=== PATIENT | male | born 2000 | race Caucasian/White ===

== ENCOUNTER 2024-12-18 01:09 | Emergency (ER) | payer BC, SELFPAY ==
[2024-12-18] VITALS (18 sets, daily range): BP systolic 106–134; BP diastolic 63–117; PULSE 100–120; RESP 15–32; TEMP 36.9–37.2; O2SAT 94–99; BMI 27.3
--- NOTE | 2024-12-18 01:24 | EKG12_ITS ---
Test Reason : CHEST PAIN
--- NOTE | 2024-12-18 01:25 | CT_ITS ---
PROCEDURE: CT/CTA Chest W/WO Contrast
--- NOTE | 2024-12-18 01:27 | EX.ED.DYSGE1 ---
HPI History of Present Illness Chief Complaint: Chest Pain Informant: patient and spouse/S.O. Narrative Narrative: Patient is a 24-year-old male with past medical history of anxiety. He recently started Prozac. He states in the last 2 days he has had mid chest discomfort without trauma or excessive activity. He states that the pain has persistently worsened since its onset and now he has shortness of breath and difficulty breathing because it hurts to breathe. He denies any recent surgery travel or history of DVT/PE. He denies any family history of cardiac disease at a young age. Of note he does state that roughly 6 months ago he had a similar event that lasted a few days and then resolved. He states he was not evaluated at that time. However with the persistent and now worsening symptoms he presents for evaluation [facility] Medical History Anxiety Home Medications ?Medication ?Instructions ?Recorded ?Last Taken ?Type colchicine 0.6 mg tablet 0.6 mg PO BID 14 days #28 tabs 12/18/24 Unknown Rx fluoxetine 40 mg capsule 40 mg PO DAILY 12/18/24 Unknown History ibuprofen 600 mg tablet 600 mg PO 4X/DAY 14 days #56 tabs 12/18/24 Unknown Rx oxycodone-acetaminophen 5 mg-325 1 tab PO Q6H PRN pain 5 days #20 12/18/24 Unknown Rx mg tablet (Percocet) tabs pantoprazole 40 mg tablet,delayed 40 mg PO DAILY 30 days #30 tabs 12/18/24 Unknown Rx release (Protonix) Allergy/AdvReac Type Severity Reaction Status Date / Time No Known Allergies Allergy Verified 12/18/24 01:09 Social History Smoking Status: Never smoker ROS [facility] ED Constitutional Constitutional ED: Denies chills or fever(s) ENT ENT ED: Denies sore throat Cardiovascular Cardiovascular: Reports chest pain and racing heartbeat Respiratory/Chest Respiratory/Chest: Reports dyspnea; Denies cough Gastrointestinal Gastrointestinal: Denies abdominal pain, diarrhea, nausea or vomiting Musculoskeletal Musculoskeletal: Denies back pain or myalgias Integumentary Denies rash Neurologic Neurologic: Denies headache(s) Psychiatric Psychiatric: Reports anxiety Hematologic/Lymphatic Hematologic/Lymphatic: Denies easy bleeding or easy bruising EXAM Physical Exam Const Vital Signs: 12/18/24 01:09 12/18/24 01:09 12/18/24 01:13 Temperature 99 F Temperature Source Oral Pulse Rate 119 H 120 H Respiratory Rate 20 H 28 H Respiratory Effort Short of Breath Blood Pressure 134/80 H Blood Pressure Mean 98 Pulse Ox 98 98 Oxygen Delivery Method 12/18/24 01:15 12/18/24 01:30 12/18/24 01:30 Temperature Temperature Source Pulse Rate 119 H 106 H Respiratory Rate 23 H 26 H Respiratory Effort Blood Pressure 109/79 120/94 H 120/94 H Blood Pressure Mean 90 103 103 Pulse Ox 99 97 Oxygen Delivery Method 12/18/24 01:45 12/18/24 01:46 12/18/24 02:01 Temperature Temperature Source Pulse Rate 112 H 111 H 114 H Respiratory Rate 15 17 Respiratory Effort Blood Pressure 128/117 H Blood Pressure Mean 122 Pulse Ox 94 Oxygen Delivery Method 12/18/24 02:09 12/18/24 02:15 12/18/24 02:30 Temperature Temperature Source Pulse Rate 106 H 103 H 100 Respiratory Rate 20 H 26 H 28 H Respiratory Effort Blood Pressure Blood Pressure Mean Pulse Ox 99 99 98 Oxygen Delivery Method Room Air 12/18/24 02:45 12/18/24 03:00 12/18/24 03:08 Temperature Temperature Source Pulse Rate 103 H 102 H 105 H Respiratory Rate 32 H 25 H 30 H Respiratory Effort Blood Pressure 111/87 H Blood Pressure Mean 94 Pulse Ox 97 98 96 Oxygen Delivery Method 12/18/24 03:15 12/18/24 03:30 12/18/24 03:45 Temperature Temperature Source Pulse Rate 109 H 106 H Respiratory Rate 20 H 18 Respiratory Effort Blood Pressure 125/80 H 110/68 106/74 Blood Pressure Mean 92 81 84 Pulse Ox 97 97 Oxygen Delivery Method 12/18/24 04:00 12/18/24 04:39 Temperature 98.4 F Temperature Source Pulse Rate 103 H 106 H Respiratory Rate 22 H 20 H Respiratory Effort Blood Pressure 112/67 109/63 Blood Pressure Mean 81 78 Pulse Ox 97 98 Oxygen Delivery Method Positive well nourished and well developed General Appearance ED: well developed; Negative for pallor HEENT HEENT Narrative: Normocephalic atraumatic Eyes PERRL and EOMs intact bilaterally General Eye ED: Negative for scleral icterus Neck supple and no JVD Chest Wall palpation of chest normal Chest Narrative: No bony deformity or crepitance No reproducible pain with palpation of the chest wall Resp normal respiratory effort Resp Narrative: Patient is tachypneic and breath sounds are diminished throughout but overall clear to auscultation Cardio regular rhythm Rate: tachycardic and other Other Details: Tachycardic rate with regular rhythm Radial and carotid pulses are equal and symmetric No murmurs rubs or gallops GI normal to inspection, nondistended, normoactive bowel sounds, non-tender, non-distended and no masses Auscultation: normoactive bowel sounds Palpation: soft Extremity normal to inspection Extremity Narrative: No asymmetric edema no pitting edema negative Homans' sign bilaterally Neuro oriented x3, CN's II-XII intact bilaterally and no sensory deficits noted Sensorium / Orientation: alert Motor Exam: strength 5/5 throughout Psych Mood & Affect: anxious Skin no rashes or lesions noted and no wounds General Skin Exam: Negative for jaundice or pallor MDM MDM MDM Narrative Medical decision making narrative: Patient arrived to the ER tachycardic and was mildly tachypneic but overall satting well on room air and afebrile. He reported roughly 2 days of increasing midsternal chest pain. He is low risk for acute coronary syndrome but with concern for ACS versus cardiac dysrhythmia an EKG was obtained. EKG showed no findings of acute ischemia or cardiac dysrhythmia but did note diffuse ST segment elevation and AL depression consistent with pericarditis. In order to assess for intra pulmonary embolus versus pneumonia versus pneumothorax versus pericardial effusion a CTA of the chest was obtained. This revealed no acute findings. The patient white blood cell count is elevated as well as a CRP consistent for inflammatory marker elevation and inflammation of pericarditis. The initial and delta troponin were normal going against ACS. At this time the patient is not hypoxic we have ruled out dissection or ACS as a cause of his symptoms and he does not have secondary pericardial effusion associated with the pericarditis. Therefore I do not feel there is need for admission. As I feel the white count and CRP are related to inflammation and not infection there is no need for antibiotics. The patient will be kept on 600 mg ibuprofen 4 times a day as well as colchicine to help resolve the inflammation and control his chest discomfort. He can follow-up with cardiology as an outpatient to discuss potential causes for his pericarditis but at this time as he does not have associated pericardial effusion or findings of cardiac ischemia and is not requiring supplemental oxygen do not feel there is need for admission and he is otherwise safe for discharge. History & Record Review Discussion w/independent historian: Patient and Significant other Lab Data Attestation: I reviewed the patient's lab results. Labs: Laboratory Results - last 24 hr 12/18/24 12/18/24 01:15 03:14 WBC 19.6 H RBC 5.11 Hgb 14.7 Hct 44.0 MCV 86.1 MCH 28.8 MCHC 33.4 RDW Std Deviation 41.4 RDW Coeff of Tita 13.3 Plt Count 301 MPV 9.6 Immature Gran % (Auto) 0.700 Neut % (Auto) 79.6 H Lymph % (Auto) 9.1 L Barry % (Auto) 10.2 H Eos % (Auto) 0.1 Baso % (Auto) 0.3 Absolute Neuts (auto) 15.7 H Absolute Lymphs (auto) 1.78 Nucleated RBC % 0 Differential Comment SCANNED ESR 9 PT 15.4 H INR 1.2 APTT 33.5 Sodium 137 Potassium 4.3 Chloride 102 Carbon Dioxide 23.2 Anion Gap 12 BUN 17 Creatinine 0.81 Estim Creat Clear Calc 129.21 Est GFR (MDRD) Non-Af 125 BUN/Creatinine Ratio 20.8 H Glucose 114 H Calcium 9.3 Troponin T High Sens < 6 Troponin T Hi Sens 2 Hr 6 C-React Prot Ext Range 141.00 H Radiography Diagnostic Testing: Clinical Impression(s) from Imaging Studies Chest CTA 12/18/24 01:25 IMPRESSION: Mild bilateral basilar atelectatic pulmonary changes. No CT evidence of pulmonary embolus or aortic dissection. Reading [facility] Discharge Plan Triage Chief Complaint: Chest Pain ED Provider: Tray Cyr Dx/Rx/DC Orders Clinical Impression: Acute pericarditis, Anxiety Instructions: ED Pericarditis Prescriptions: New ibuprofen 600 mg tablet 600 mg PO 4X/DAY 14 Days Qty: 56 1RF colchicine 0.6 mg tablet 0.6 mg PO BID 14 Days Qty: 28 0RF oxycodone-acetaminophen [Percocet] 5-325 mg tablet 1 tab PO Q6H PRN (Reason: pain) 5 Days Qty: 20 0RF pantoprazole [Protonix] 40 mg tablet,delayed release (DR/EC) 40 mg PO DAILY 30 Days Qty: 30 0RF No Action fluoxetine 40 mg capsule 40 mg PO DAILY Primary Care Provider: Art Breaux Referrals: Patrick Baez MD [Med Staff - Active Staff, Cardiology] Referral Note: Acute pericarditis NOT,DEFINED [Non-Staff, None] Activity Restrictions/Additional Instructions: Please take the prescribed medications as directed to help resolve the inflammation around your heart and also reduce pain. Follow-up with cardiology to discuss further testing or treatment options if needed. It will typically take 2 to 3 days before you notice symptom improvement. Return to the ER should you have any further concerns Print Language: Pashto Disposition Disposition: Home, Self Care Discharge Date/Time: 12/18/24 04:40
[2024-12-18 01:43] LABS: Hematocrit 44.0 % (40-54); Hemoglobin 14.7 g/dL (13.0-16.5); Immature Granulocytes Count 0.130 X10^3/uL (0.0-0.0); Mean Corp Hgb Conc 33.4 g/dL (32-36); Mean Corpuscular Volume 86.1 fL (80-94); Mean Platelet Vol. 9.6 fl (6.2-12.0); NRBC Flagged by Analyzer 0 % (0-5); POSITIVE DIFFERENTIAL YES; Platelet Count 301 K/mm3 (150-450); RBC Distribution Width CV 13.3 % (11.6-14.6); RBC Distribution Width SD 41.4 fl (35.1-43.9); Red Blood Count 5.11 M/mm3 (4.6-6.2); White Blood Count 19.6 K/mm3 (4.4-11.0)
[2024-12-18 01:48] LABS: Prothrombin Time (Protime)PT. 15.4 SECONDS (11.7-14.9)
[2024-12-18 01:49] LABS: Differential Indicated SCAN CRITERIA MET; Partial Thromboplast Time 33.5 Seconds (24.1-36.2)
[2024-12-18 02:02] LABS: Troponin T High Sensitivity < 6 ng/L (<=22)
[2024-12-18 02:03] LABS: Anion Gap 12 (5-15); BUN 17 mg/dL (4-19); BUN/Creat Ratio 20.8 RATIO (10-20); Calcium,Total 9.3 mg/dL (7.6-11.0); Carbon Dioxide 23.2 mmol/L (21.0-32.0); Chloride 102 mmol/L (98-108); Estimated Creatinine Clearance 129.21 ml/min (50-250); Glucose 114 mg/dL (70-99); Potassium 4.3 mmol/L (3.3-5.1)
[2024-12-18] MEDS: 0.9% Normal Saline (1000mL) 1,000 ML 999 ML IV (02:06)
[2024-12-18] MEDS: Ketorolac 30 MG/ML Syringe IV (02:06)
[2024-12-18 02:15] LABS: Differential Comment SCANNED
[2024-12-18 03:36] LABS: CRP 141.00 mg/L (0.0-3.0)
[2024-12-18 04:17] LABS: Troponin T High Sens 2 HR 6 ng/L (<=22)
== END 2024-12-18 04:40 | disposition home or self-care (01) ==
PROVIDERS: Emergency Provider Emergency Medicine; PCP Family Medicine; Visit Provider Emergency Medicine
DX: I30.9 Acute pericarditis, unspecified (principal); F41.9 Anxiety disorder, unspecified; Z79.899 Other long term (current) drug therapy
CPT/HCPCS: 71275; 80048; 84484; 85025; 85610; 85652; 85730; 86140; 93005; 96361; 96374; 96375; 96376; 99282; Q9967; A4216; J2405

== ENCOUNTER 2025-01-01 20:38 | Emergency (ER) | payer BC, SELFPAY ==
[2025-01-01 20:38] VITALS: BP 112/69; PULSE 115; RESP 22; TEMP 37.6; O2SAT 96; BMI 29.0
[2025-01-01 20:41] VITALS: BP 117/73; PULSE 105; RESP 20; TEMP 37.4; O2SAT 97
--- NOTE | 2025-01-01 20:42 | ED.RN ---
IVON CHANGED TO A 2 DUE TO C/O CHEST PAIN AND DX OF PERICARDITIS
--- NOTE | 2025-01-01 20:44 | EDS_ITS ---
HPI <Dr. Adrián Espinoza DO - Last Filed: 01/02/25 01:03> History of Present Illness Chief Complaint: Fever Informant: patient Onset/Context/Timing Onset: Weeks (2) Context: Sudden Onset Timing: Intermittent Quality: Sharp Location: Bilateral shoulders, left worse than right, upper back Worsened by: Laying down Relieved by: Nothing Narrative Narrative: Patient presents with fever and chest pain that has been getting worse over the past 2 weeks. Patient states it comes and goes. Patient states his pain is sharp. Patient states it is over both shoulders and his upper back. Patient states it is worse on the left. Patient states it is worse when he lays down. Patient states nothing seems to help with it. Patient admits to some shortness of breath and palpitations. Patient states he feels like his heart is racing at times. Patient admits to some nausea but denies any vomiting. Patient admits to some pain in his neck and back. Patient also admits to a mild headache. Patient states his temperature at home was up to 101. PFSH <Dr. Adrián Espinoza, - Last Filed: 01/02/25 01:03> [facility] Medical History (Updated 01/02/25 @ 07:[address] Giuseppe Tirado MD) Acid reflux Constipation Distal muscular dystrophy Anxiety Home Medications Medication Instructions Recorded Last Taken Type colchicine 0.6 mg tablet 0.6 mg PO BID 14 days #28 ta bs 12/18/24 Unknown Rx fluoxetine 40 mg capsule 40 mg PO DAILY 12/18/24 Unkn own History ibuprofen 600 mg tablet 600 mg PO 4X/DAY 14 days #56 tabs 12/18/24 Unknown Rx oxycodone-acetaminophen 5 mg-325 1 tab PO Q6H PRN pain 5 days #20 12/18/24 Unknown Rx mg tablet (Percocet) tabs pantoprazole 40 mg tablet,delayed 40 mg PO DAILY 30 da ys #30 tabs 12/18/24 Unknown Rx release (Protonix) Allergy/AdvReac Type Severity Reaction Status Date / Time No Known Allergies Allergy Verified 01/01/25 20:46 Surgical History (Updated 01/01/25 @ 22:[address] Adrián Espinoza DO) History of nasal surgery Social History Smoking Status: Never smoker ROS <Dr. Adrián Espinoza, DO - Last Filed: 01/02/25 01:03> ROS ED Constitutional Constitutional ED: Reports chills and fever(s) Eyes Eyes: Denies blurry vision or change in vision ENT ENT ED: Reports rhinorrhea; Denies sore throat Cardiovascular Cardiovascular: Reports chest pain, palpitations and racing heartbeat Respiratory/Chest Respiratory/Chest: Reports dyspnea; Denies cough Gastrointestinal Gastrointestinal: Reports nausea; Denies vomiting Genitourinary Genitourinary ED: Denies dysuria or hematuria Musculoskeletal Musculoskeletal: Reports back pain, myalgias and neck pain Integumentary Denies abscess or rash Neurologic Neurologic: Reports headache(s); Denies weakness Allergic/Immunologic Allergic/Immunologic ED: Denies mouth swelling or urticaria EXAM <Dr. Adrián Espinoza, DO - Last Filed: 01/02/25 01:03> Physical Exam Const Vital Signs: 01/01/25 20:38 01/01/25 20:41 01/01/25 21:25 Temperature 99.7 F H 99.3 F H Temperature Source Oral Oral Pulse Rate 115 H 105 H Respiratory Rate 22 H 20 H Respiratory Effort Normal Respiratory Pattern Normal Blood Pressure 112/69 117/73 Blood Pressure Mean 83 87 Pulse Ox 96 97 Oxygen Delivery Method Room Air Room Air 01/01/25 21:41 01/01/25 22:00 01/01/25 23:00 Temperature 98.5 F 98.5 F 98.3 F Temperature Source Oral Oral Oral Pulse Rate 79 82 89 Respiratory Rate 16 16 16 Respiratory Effort Respiratory Pattern Blood Pressure 102/64 104/63 110/68 Blood Pressure Mean 76 76 82 Pulse Ox 95 95 95 Oxygen Delivery Method Room Air Room Air Room Air 01/02/25 00:00 01/02/25 01:00 01/02/25 01:13 Temperature 98.4 F Temperature Source Oral Pulse Rate 105 H 77 84 Respiratory Rate 16 24 H 32 H Respiratory Effort Respiratory Pattern Blood Pressure 104/74 101/72 Blood Pressure Mean 84 81 Pulse Ox 92 92 91 Oxygen Delivery Method Room Air Room Air 01/02/25 01:15 01/02/25 01:30 01/02/25 01:44 Temperature 98.5 F Temperature Source Oral Pulse Rate 87 84 84 Respiratory Rate 30 H 32 H 28 H Respiratory Effort Respiratory Pattern Blood Pressure 107/73 108/71 108/71 Blood Pressure Mean 82 81 83 Pulse Ox 90 89 92 Oxygen Delivery Method Room Air 01/02/25 01:45 01/02/25 02:00 01/02/25 02:15 Temperature Temperature Source Pulse Rate 82 87 80 Respiratory Rate 28 H 25 H 24 H Respiratory Effort Respiratory Pattern Blood Pressure 107/72 112/78 110/77 Blood Pressure Mean 84 89 87 Pulse Ox 91 87 93 Oxygen Delivery Method 01/02/25 02:30 01/02/25 02:45 01/02/25 03:00 Temperature 98.4 F Temperature Source Oral Pulse Rate 85 89 93 Respiratory Rate 25 H 24 H 24 H Respiratory Effort Respiratory Pattern Blood Pressure 106/71 108/75 108/76 Blood Pressure Mean 82 85 86 Pulse Ox 93 93 93 Oxygen Delivery Method Room Air 01/02/25 03:00 01/02/25 03:15 01/02/25 03:30 Temperature Temperature Source Pulse Rate 83 84 Respiratory Rate 21 H 25 H Respiratory Effort Respiratory Pattern Blood Pressure 108/76 112/75 108/75 Blood Pressure Mean 88 85 85 Pulse Ox 94 93 Oxygen Delivery Method 01/02/25 03:45 01/02/25 04:00 01/02/25 04:00 Temperature Temperature Source Pulse Rate 82 89 82 Respiratory Rate 27 H 23 H 25 H Respiratory Effort Respiratory Pattern Blood Pressure 114/80 117/79 113/79 Blood Pressure Mean 90 91 90 Pulse Ox 94 91 93 Oxygen Delivery Method Room Air 01/02/25 04:15 01/02/25 04:30 01/02/25 04:47 Temperature Temperature Source Pulse Rate 85 84 89 Respiratory Rate 25 H 23 H 34 H Respiratory Effort Respiratory Pattern Blood Pressure 117/79 114/82 H Blood Pressure Mean 90 93 Pulse Ox 93 91 95 Oxygen Delivery Method 01/02/25 05:00 01/02/25 05:00 01/02/25 05:15 Temperature Temperature Source Pulse Rate 93 89 94 Respiratory Rate 30 H 26 H 27 H Respiratory Effort Respiratory Pattern Blood Pressure 118/73 Blood Pressure Mean 88 Pulse Ox 92 93 93 Oxygen Delivery Method Room Air 01/02/25 05:17 01/02/25 05:30 01/02/25 05:45 Temperature Temperature Source Pulse Rate 104 H 101 H 97 Respiratory Rate 28 H 24 H 33 H Respiratory Effort Respiratory Pattern Blood Pressure 118/73 Blood Pressure Mean 86 Pulse Ox 94 94 93 Oxygen Delivery Method 01/02/25 06:00 01/02/25 06:00 01/02/25 06:15 Temperature Temperature Source Pulse Rate 97 91 101 H Respiratory Rate 14 30 H 20 H Respiratory Effort Respiratory Pattern Blood Pressure 112/79 112/79 Blood Pressure Mean 90 89 Pulse Ox 97 97 92 Oxygen Delivery Method Room Air 01/02/25 06:30 01/02/25 06:45 01/02/25 07:00 Temperature Temperature Source Pulse Rate 93 38 L Respiratory Rate 38 H 16 Respiratory Effort Respiratory Pattern Blood Pressure 108/76 Blood Pressure Mean 86 Pulse Ox 97 92 98 Oxygen Delivery Method Room Air 01/02/25 07:00 01/02/25 07:15 01/02/25 07:30 Temperature Temperature Source Pulse Rate 103 H 101 H 99 Respiratory Rate 25 H 31 H 35 H Respiratory Effort Respiratory Pattern Blood Pressure 108/74 Blood Pressure Mean 85 Pulse Ox 96 97 98 Oxygen Delivery Method 01/02/25 07:45 01/02/25 08:04 Temperature Temperature Source Pulse Rate 97 100 Respiratory Rate 38 H 32 H Respiratory Effort Respiratory Pattern Blood Pressure 118/83 H Blood Pressure Mean 94 Pulse Ox 99 98 Oxygen Delivery Method Nasal Cannula Positive well nourished and well developed General Appearance ED: well developed and NAD HEENT Reports moist mucous membranes Neck supple and no JVD Chest Wall inspection of chest normal and palpation of chest normal Resp normal respiratory effort and clear to auscultation bilaterally Cardio regular rate and regular rhythm GI non-tender and non-distended Palpation: soft Rectal Exam: normal sphincter tone, prostate normal and heme negative stool Neuro oriented x3, CN's II-XII intact bilaterally and no sensory deficits noted Sensorium / Orientation: alert Motor Exam: strength 5/5 throughout Psych mental status grossly normal <Dr. Giuseppe Tirado MD - Last Filed: 01/02/25 08:38> Physical Exam Const Vital Signs: 01/01/25 20:38 01/01/25 20:41 01/01/25 21:25 Temperature 99.7 F H 99.3 F H Temperature Source Oral Oral Pulse Rate 115 H 105 H Respiratory Rate 22 H 20 H Respiratory Effort Normal Respiratory Pattern Normal Blood Pressure 112/69 117/73 Blood Pressure Mean 83 87 Pulse Ox 96 97 Oxygen Delivery Method Room Air Room Air 01/01/25 21:41 01/01/25 22:00 01/01/25 23:00 Temperature 98.5 F 98.5 F 98.3 F Temperature Source Oral Oral Oral Pulse Rate 79 82 89 Respiratory Rate 16 16 16 Respiratory Effort Respiratory Pattern Blood Pressure 102/64 104/63 110/68 Blood Pressure Mean 76 76 82 Pulse Ox 95 95 95 Oxygen Delivery Method Room Air Room Air Room Air 01/02/25 00:00 01/02/25 01:00 01/02/25 01:13 Temperature 98.4 F Temperature Source Oral Pulse Rate 105 H 77 84 Respiratory Rate 16 24 H 32 H Respiratory Effort Respiratory Pattern Blood Pressure 104/74 101/72 Blood Pressure Mean 84 81 Pulse Ox 92 92 91 Oxygen Delivery Method Room Air Room Air 01/02/25 01:15 01/02/25 01:30 01/02/25 01:44 Temperature 98.5 F Temperature Source Oral Pulse Rate 87 84 84 Respiratory Rate 30 H 32 H 28 H Respiratory Effort Respiratory Pattern Blood Pressure 107/73 108/71 108/71 Blood Pressure Mean 82 81 83 Pulse Ox 90 89 92 Oxygen Delivery Method Room Air 01/02/25 01:45 01/02/25 02:00 01/02/25 02:15 Temperature Temperature Source Pulse Rate 82 87 80 Respiratory Rate 28 H 25 H 24 H Respiratory Effort Respiratory Pattern Blood Pressure 107/72 112/78 110/77 Blood Pressure Mean 84 89 87 Pulse Ox 91 87 93 Oxygen Delivery Method 01/02/25 02:30 01/02/25 02:45 01/02/25 03:00 Temperature 98.4 F Temperature Source Oral Pulse Rate 85 89 93 Respiratory Rate 25 H 24 H 24 H Respiratory Effort Respiratory Pattern Blood Pressure 106/71 108/75 108/76 Blood Pressure Mean 82 85 86 Pulse Ox 93 93 93 Oxygen Delivery Method Room Air 01/02/25 03:00 01/02/25 03:15 01/02/25 03:30 Temperature Temperature Source Pulse Rate 83 84 Respiratory Rate 21 H 25 H Respiratory Effort Respiratory Pattern Blood Pressure 108/76 112/75 108/75 Blood Pressure Mean 88 85 85 Pulse Ox 94 93 Oxygen Delivery Method 01/02/25 03:45 01/02/25 04:00 01/02/25 04:00 Temperature Temperature Source Pulse Rate 82 89 82 Respiratory Rate 27 H 23 H 25 H Respiratory Effort Respiratory Pattern Blood Pressure 114/80 117/79 113/79 Blood Pressure Mean 90 91 90 Pulse Ox 94 91 93 Oxygen Delivery Method Room Air 01/02/25 04:15 01/02/25 04:30 01/02/25 04:47 Temperature Temperature Source Pulse Rate 85 84 89 Respiratory Rate 25 H 23 H 34 H Respiratory Effort Respiratory Pattern Blood Pressure 117/79 114/82 H Blood Pressure Mean 90 93 Pulse Ox 93 91 95 Oxygen Delivery Method 01/02/25 05:00 01/02/25 05:00 01/02/25 05:15 Temperature Temperature Source Pulse Rate 93 89 94 Respiratory Rate 30 H 26 H 27 H Respiratory Effort Respiratory Pattern Blood Pressure 118/73 Blood Pressure Mean 88 Pulse Ox 92 93 93 Oxygen Delivery Method Room Air 01/02/25 05:17 01/02/25 05:30 01/02/25 05:45 Temperature Temperature Source Pulse Rate 104 H 101 H 97 Respiratory Rate 28 H 24 H 33 H Respiratory Effort Respiratory Pattern Blood Pressure 118/73 Blood Pressure Mean 86 Pulse Ox 94 94 93 Oxygen Delivery Method 01/02/25 06:00 01/02/25 06:00 01/02/25 06:15 Temperature Temperature Source Pulse Rate 97 91 101 H Respiratory Rate 14 30 H 20 H Respiratory Effort Respiratory Pattern Blood Pressure 112/79 112/79 Blood Pressure Mean 90 89 Pulse Ox 97 97 92 Oxygen Delivery Method Room Air 01/02/25 06:30 01/02/25 06:45 01/02/25 07:00 Temperature Temperature Source Pulse Rate 93 38 L Respiratory Rate 38 H 16 Respiratory Effort Respiratory Pattern Blood Pressure 108/76 Blood Pressure Mean 86 Pulse Ox 97 92 98 Oxygen Delivery Method Room Air 01/02/25 07:00 01/02/25 07:15 01/02/25 07:30 Temperature Temperature Source Pulse Rate 103 H 101 H 99 Respiratory Rate 25 H 31 H 35 H Respiratory Effort Respiratory Pattern Blood Pressure 108/74 Blood Pressure Mean 85 Pulse Ox 96 97 98 Oxygen Delivery Method 01/02/25 07:45 01/02/25 08:04 Temperature Temperature Source Pulse Rate 97 100 Respiratory Rate 38 H 32 H Respiratory Effort Respiratory Pattern Blood Pressure 118/83 H Blood Pressure Mean 94 Pulse Ox 99 98 Oxygen Delivery Method Nasal Cannula GERALDINE <Dr. Adrián Espinoza, DO - Last Filed: 01/02/25 01:03> GERALDINE MDM Narrative Medical decision making narrative: Differential diagnosis includes pneumonia, bronchitis, cardiac dysrhythmia, cardiac ischemia, gastroenteritis, viral illness, dehydration, electrolyte abnormality, and anxiety. Chest x-ray will be obtained to assess for pneumonia and bronchitis. EKG will be obtained to assess for cardiac dysrhythmia and cardiac ischemia. CBC will be obtained to assess for leukocytosis and anemia. Comprehensive metabolic profile will be obtained to assess for hepatic function, renal function, and electrolyte abnormality. Lipase will be obtained to assess for pancreatitis. D-dimer will be obtained to assess for pulmonary embolism. PT with INR and PTT will be obtained to assess for coagulopathy. Urinalysis will be obtained to assess for urinary tract infection and hematuria. History & Record Review Additional record(s) reviewed:: Prior ED visit and Prior labs Lab Data Attestation: I reviewed the patient's lab results. Lab results narrative: CBC was reviewed. White blood cell count was 16.8. This is decreased from previous results. Hemoglobin was 10.4 and hematocrit was 32.6. This was decreased from previous result 2 weeks ago which was 14.7. Platelets were normal. PT with INR and PTT were reviewed. Pro time was 16.2 and INR is 1.3. PTT was slightly elevated at 39.7. D-dimer was reviewed and was elevated at 3.03. Comprehensive metabolic profile was reviewed and was essentially within normal limits. AST was 41 and ALT was 55. Initial high-sensitivity troponin was reviewed and was less than 6. Lipase was reviewed and was normal at 14. Urinalysis was reviewed. There is no evidence of urinary tract infection or hematuria. 2-hour repeat high-sensitivity troponin was reviewed and was normal at 8. COVID-19 PCR was reviewed and was negative. Influenza PCR was reviewed and was negative for influenza A and influenza B. RSV PCR was reviewed and was negative. Stool for occult blood was reviewed and was negative. Labs: Laboratory Results - last 24 hr 01/01/25 01/01/25 01/01/25 20:55 21:01 21:20 WBC 16.8 H RBC 3.66 L Hgb 10.4 L Hct 32.6 L MCV 89.1 MCH 28.4 MCHC 31.9 L RDW Std Deviation 45.2 H RDW Coeff of Tita 13.7 Plt Count 420 MPV 9.9 Immature Gran % (Auto) 1.500 H Neut % (Auto) 80.4 H Lymph % (Auto) 7.9 L [place] % (Auto) 9.1 Eos % (Auto) 0.8 Baso % (Auto) 0.3 Absolute Neuts (auto) 13.5 H Absolute Lymphs (auto) 1.33 Nucleated RBC % 0 Differential Comment SCANNED Platelet Estimate ADEQUATE PT 16.2 H INR 1.3 APTT 39.7 H D-Dimer Quant (PE/DVT) 3.03 H* Sodium 138 Potassium 3.9 Chloride 104 Carbon Dioxide 24.0 Anion Gap 10 BUN 19 Creatinine 1.07 Estim Creat Clear Calc 108.44 Est GFR (MDRD) Non-Af 98 BUN/Creatinine Ratio 17.4 Glucose 126 H Lactic Acid 1.3 Calcium 9.0 Total Bilirubin 0.28 AST 41 H ALT 55 H Alkaline Phosphatase 116 Troponin T High Sens < 6 Troponin T Hi Sens 2 Hr Troponin T Hi Sens 4Hr NT pro BNP II Total Protein 7.1 Albumin 3.5 Globulin 3.6 Albumin/Globulin Ratio 1.0 Lipase 14 Urine Color Yellow Urine Clarity Clear Urine pH 6.0 Ur Specific [place] 1.020 Urine Protein 30 H Urine Glucose (UA) Normal Urine Ketones Negative Urine Occult Blood Negative Urine Nitrite Negative Urine Bilirubin Negative Urine Urobilinogen 4 H Ur Leukocyte Esterase Negative Urine RBC 0 SEEN Urine WBC 0-5 SEEN Ur Squamous Epith Cells 0-5 SEEN Amorphous Sediment 2+ Urine Bacteria 1+ Urine Mucus 2+ 01/01/25 01/02/25 23:11 01:00 WBC RBC Hgb Hct MCV MCH MCHC RDW Std Deviation RDW Coeff of [place]ita Plt Count MPV Immature Gran % (Auto) Neut % (Auto) Lymph % (Auto) [place] % (Auto) Eos % (Auto) Baso % (Auto) Absolute Neuts (auto) Absolute Lymphs (auto) Nucleated RBC % Differential Comment Platelet Estimate PT INR APTT D-Dimer Quant (PE/DVT) Sodium Potassium Chloride Carbon Dioxide Anion Gap BUN Creatinine Estim Creat Clear Calc Est GFR (MDRD) Non-Af BUN/Creatinine Ratio Glucose Lactic Acid Calcium Total Bilirubin AST ALT Alkaline Phosphatase Troponin T High Sens Troponin T Hi Sens 2 Hr 8 Troponin T Hi Sens 4Hr 7 NT pro BNP II 342 Total Protein Albumin Globulin Albumin/Globulin Ratio Lipase Urine Color Urine Clarity Urine pH Ur Specific [place] Urine Protein Urine Glucose (UA) Urine Ketones Urine Occult Blood Urine Nitrite Urine Bilirubin Urine Urobilinogen Ur Leukocyte Esterase Urine RBC Urine WBC Ur Squamous Epith Cells Amorphous Sediment Urine Bacteria Urine Mucus Radiography Chest X-Ray - ED: 2 View, Read by ED Physician, Read by Radiologist, Cardiomegaly and No Infiltrates Diagnostic Testing: Clinical Impression(s) from Imaging Studies Chest X-Ray 01/01/25 20:54 IMPRESSION: Stable mild cardiomegaly and mild pulmonary vascular congestion. [facility] Chest CTA 01/01/25 22:48 IMPRESSION: No evidence of pulmonary embolism. Cardiomegaly, pericardial effusion with small left pleural effusion and ground- glass densities in the lower lobes consistent with CHF. Reading Location: [facility] PA and lateral chest x-ray was obtained. There are 2 views. On my independent interpretation, lung garcia show mild pulmonary vascular congestion. There is mild cardiomegaly. Bony thorax is normal. There is no acute process noted. Radiologist also interpreted the x-ray and agrees. EKG Initial EKG: Attestation: I personally reviewed and interpreted this EKG as follows: Interpretation: No Acute Injury Pattern and Sinus Tachycardia (114) Comments: EKG was obtained. On my independent interpretation, it showed a sinus tachycardia with a rate of 114. MO interval, QRS interval, and QTc intervals were all normal. [place] was normal. There are no acute ST or T wave changes. Prior EKG tracings: available for review Prior: Unchanged (12/18/2024) Treatment and Re-Evaluation :: Patient was given IV fluids, morphine, and Zofran. Patient was advised of his findings. Patient's hemoglobin went from 14.7-10.4 in the last 2 weeks. Stool was obtained for occult blood. Care of this patient was turned over to the oncoming physician pending CT scan results. <Dr. Giuseppe Tirado MD - Last Filed: 01/02/25 08:38> [facility] Lab Data Labs: Laboratory Results - last 24 hr 01/01/25 01/01/25 01/01/25 20:55 21:01 21:20 WBC 16.8 H RBC 3.66 L Hgb 10.4 L Hct 32.6 L MCV 89.1 MCH 28.4 MCHC 31.9 L RDW Std Deviation 45.2 H RDW Coeff of Tita 13.7 Plt Count 420 MPV 9.9 Immature Gran % (Auto) 1.500 H Neut % (Auto) 80.4 H Lymph % (Auto) 7.9 L [place] % (Auto) 9.1 Eos % (Auto) 0.8 Baso % (Auto) 0.3 Absolute Neuts (auto) 13.5 H Absolute Lymphs (auto) 1.33 Nucleated RBC % 0 Differential Comment SCANNED Platelet Estimate ADEQUATE PT 16.2 H INR 1.3 APTT 39.7 H D-Dimer Quant (PE/DVT) 3.03 H* Sodium 138 Potassium 3.9 Chloride 104 Carbon Dioxide 24.0 Anion Gap 10 BUN 19 Creatinine 1.07 Estim Creat Clear Calc 108.44 Est GFR (MDRD) Non-Af 98 BUN/Creatinine Ratio 17.4 Glucose 126 H Lactic Acid 1.3 Calcium 9.0 Total Bilirubin 0.28 AST 41 H ALT 55 H Alkaline Phosphatase 116 Troponin T High Sens < 6 Troponin T Hi Sens 2 Hr Troponin T Hi Sens 4Hr NT pro BNP II Total Protein 7.1 Albumin 3.5 Globulin 3.6 Albumin/Globulin Ratio 1.0 Lipase 14 Urine Color Yellow Urine Clarity Clear Urine pH 6.0 Ur Specific [place] 1.020 Urine Protein 30 H Urine Glucose (UA) Normal Urine Ketones Negative Urine Occult Blood Negative Urine Nitrite Negative Urine Bilirubin Negative Urine Urobilinogen 4 H Ur Leukocyte Esterase Negative Urine RBC 0 SEEN Urine WBC 0-5 SEEN Ur Squamous Epith Cells 0-5 SEEN Amorphous Sediment 2+ Urine Bacteria 1+ Urine Mucus 2+ 01/01/25 01/02/25 23:11 01:00 WBC RBC Hgb Hct MCV MCH MCHC RDW Std Deviation RDW Coeff of Tita Plt Count MPV Immature Gran % (Auto) Neut % (Auto) Lymph % (Auto) [place] % (Auto) Eos % (Auto) Baso % (Auto) Absolute Neuts (auto) Absolute Lymphs (auto) Nucleated RBC % Differential Comment Platelet Estimate PT INR APTT D-Dimer Quant (PE/DVT) Sodium Potassium Chloride Carbon Dioxide Anion Gap BUN Creatinine Estim Creat Clear Calc Est GFR (MDRD) Non-Af BUN/Creatinine Ratio Glucose Lactic Acid Calcium Total Bilirubin AST ALT Alkaline Phosphatase Troponin T High Sens Troponin T Hi Sens 2 Hr 8 Troponin T Hi Sens 4Hr 7 NT pro BNP II 342 Total Protein Albumin Globulin Albumin/Globulin Ratio Lipase Urine Color Urine Clarity Urine pH Ur Specific [place] Urine Protein Urine Glucose (UA) Urine Ketones Urine Occult Blood Urine Nitrite Urine Bilirubin Urine Urobilinogen Ur Leukocyte Esterase Urine RBC Urine WBC Ur Squamous Epith Cells Amorphous Sediment Urine Bacteria Urine Mucus Radiography Diagnostic Testing: Clinical Impression(s) from Imaging Studies Chest X-Ray 01/01/25 20:54 IMPRESSION: Stable mild cardiomegaly and mild pulmonary vascular congestion. Reading Location: [facility] Chest CTA 01/01/25 22:48 IMPRESSION: No evidence of pulmonary embolism. Cardiomegaly, pericardial effusion with small left pleural effusion and ground- glass densities in the lower lobes consistent with CHF. Reading Location: [facility] Treatment and Re-Evaluation Comments:: I took over this patient's care on rn shift mgr awaiting CT results. They resulted after the patient had been here for more than 10 hours. He requested several doses of pain medication but was not dyspneic while lying here, maintained stable vital signs until eventually he started dropping his oxygen levels down to 85% so we applied 3 L nasal cannula which kept him into the 90s. He did not become tachycardic or hypotensive at rest. This CTA ended up revealing no PE, small pericardial effusion, small left pleural effusion, and ground glass opacities consistent with congestive heart failure. Apparently this patient has been having fevers up to 103 for the past 2 weeks after being diagnosed with pericarditis and he has not been able to follow-up with anybody yet, until returning to the ER last night. He does not appear to be in acute pericardial tamponade, however he has been having dyspnea with very light exertion, sounds like he has respiratory insufficiency, and persistent high fevers which she had here which were treated. Given all of this I am concerned and I ordered blood cultures and a proBNP which are pending, treating his pain/symptoms, and his hypoxia and I discussed with cardiology Dr. Hare. He states given this, he recommends attempting to transfer the patient to referral center that he has cardiothoracic backup, he is unsure if the patient will need a pericardiocentesis and/or thoracentesis for fluid sampling given his fevers, which she states we generally do not do here. Patient is a [facility] outpatient patient here locally, and they prefer to try to stay within the [facility] network. They are comfortable trying [place] in [place] --discussed there with Dr. Frias who accepts the patient. Discharge Plan Triage Chief Complaint: Fever ED Provider: Adrián Espinoza Dx/Rx/DC Orders Clinical Impression: Acute respiratory insufficiency, Fever, Anemia, Acute pericardial effusion, Pulmonary edema Instructions: ED FUO Adult, ED Fever Control (Adult) Prescriptions: No Action fluoxetine 40 mg capsule 40 mg PO DAILY ibuprofen 600 mg tablet 600 mg PO 4X/DAY 14 Days Qty: 56 1RF colchicine 0.6 mg tablet 0.6 mg PO BID 14 Days Qty: 28 0RF oxycodone-acetaminophen [Percocet] 5-325 mg tablet 1 tab PO Q6H PRN (Reason: pain) 5 Days Qty: 20 0RF pantoprazole [Protonix] 40 mg tablet,delayed release (DR/EC) 40 mg PO DAILY 30 Days Qty: 30 0RF Primary Care Provider: Art Breaux Referrals: Art Breaux MD [Primary Care Provider, Family Practice] Print Language: Vietnamese Disposition Disposition: Acute Care Hospital Discharge Location: [facility]
--- NOTE | 2025-01-01 20:54 | RAD_ITS ---
PROCEDURE: CHEST PA AND LATERAL 01/01/2025 REASON FOR EXAM: CHEST PAIN TECHNIQUE: Procedure Code: RADCXR Modality: DX Procedure: CHEST PA AND LATERAL COMPARISON: CT chest 12/18/2024 FINDINGS: Hardware: Heart: Heart size is mildly enlarged. Mediastinum: The mediastinal contour is unremarkable. Lungs: Mild pulmonary vascular congestion. No definite pneumothorax or sizable pleural effusion. Bones: The bones are unremarkable. RAD/Chest PA and Lateral IMPRESSION: Stable mild cardiomegaly and mild pulmonary vascular congestion. Reading [facility]
--- NOTE | 2025-01-01 20:54 | EKG12_ITS ---
Test Reason : CP Blood Pressure : */* mmHG Vent. Rate : 114 BPM Atrial Rate : 114 BPM P-R Int : 140 ms QRS Dur : 84 ms QT Int : 316 ms P-R-T Axes : 46 52 28 degrees QTcB Int : 435 ms Sinus tachycardia Otherwise normal ECG Confirmed by NATHAN BORJAS, CHIN ([id number]), editor trade journal CHAD CARDOSO ([id number]) on 01/03/2025 9:15:15 AM Referred By: ES Confirmed By: CHIN EVANS MD
--- OUTSIDE RECORDS SUMMARY | 2025-01-01 20:58 | XMS RPT_ITS | CCD ---
Author Organization [facility] Care Team Providers Care Brigadier Name Role Phone Generic Provider MD, No Assigned Pcp Primary Car e Provider Unavailable SEAMUS MURCIA Referring Unavailable GENERIC PROVIDER, NO ASSIGNED PCP Primary Care Unavailable Mau Breaux MD Primary Care Provider Michael Collins Primary Care Provider [phone] [employer] ACCOUNTS MANAGER.Avinash PALOMO Unavailable [phone] JERMAINE VELA Attending Unavailable MAU BREAUX Referring Unavailab MAU Trent Primary Care Unavailab MAU Trent Attending Unavailab MAU Trent Primary Care Unavailab MAU Trent Attending Unavailab MAU Trent Primary Care Unavailab JERMAINE Zamora Attending Unavailable MAU BREAUX Referring Unavailab MAU Trent Primary Care Unavailab le PODLOGAVINASH LAWRENCE Attending Unavailable MAU BREAUX Primary Care Unavailab le SELF Referring Unavailable PODLOGAVINASH LAWRENCE Referring Unavailable MAU BREAUX Primary Care Unavailab Tray Chau Attending Unavailable Art Breaux Primary Care Unavailable Allergies Allergy Classification Reported Allergen(s) Allergy Type Date of Onset Reaction(s) Facility (1 source) ALLERGIES NOT ON FILE; Translations: [ALLERGIES NOT ON FILE] Propensity to adverse reactions (disorder) [facility] Repository (13 sources) Mold Extract; Translations: [MOLD] Drug Allergy 8 [facility] Medications Current Medications Medication Drug Class(es) Dates Sig (Normalized) Sig (Original) FLUoxetine 40 mg oral capsule (14 sources) Serotonin Reuptake Inhibitor Start: 12-23-2023 End: 03-22-2024 take 1 capsule by mouth once daily FLUoxetine (PROZAC) 40 mg capsule Take 1 capsule by mouth once daily. 90 capsule 12/23/2023 03/22/2024 Active Start: 09-22-2023 End: 02-22-2024 take 1 capsule by mouth once daily FLUoxetine (PROZAC) 20 mg capsule Take 1 capsule by mouth once daily. 90 capsule 11/24/2023 12/23/2023 Discontinued multivitamin tablet (11 sources) Start: 09-22-2023 take 1 tablet by mouth once daily multivitamin tablet Take 1 tablet by mouth once daily. 09/22/2023 Active Start: 09-22-2023 take 1 tablet by maria c th once daily multivitamin tablet Take 1 tablet by mouth once daily. 0 09/22/2023 Active predniSONE 10 mg oral tablet (4 sources) Start: 09-22-2023 End: 10-07-2023 predniSONE (DELTASONE) 10 mg tablet Indications: Poison mariusz dermatitis Take 4 tabs daily x5 days, then 2 tabs daily for 5 days, then 1 tab daily for 5 days. 35 tablet 0 09/22/2023 10/07/2023 Active Problems Active Problems Problem Classification Problem Date Documented Da te Episodic/Chronic Allergic reactions (1 source) Contact dermatitis due to poison mariusz; Translations: [Allergic contact dermatitis due to plants, except food] 09-22-2023 Episodic Anxiety disorders (4 sources) Generalized anxiety disorder; Translations: [Generalized anxiety disorder] Onset: 12-14-2024 09-22-2023 Chronic Immunizations and screening for infectious disease (2 sources) Patient encounter status; Translations: [Encounter for immunization] 09-22-2023 Episodic Nonspecific chest pain (3 sources) Chest pain; Translations: [Chest pain, unspecified] Onset: 12-23-2023 12-23-2023 Episodic Other circulatory disease (2 sources) Abnormal chest sounds; Translations: [Other specified symptoms and signs involving the circulatory and respiratory systems] 02-03-2024 Episodic Other lower respiratory disease (1 source) Dry cough; Translations: [Persistent dry cough] 09-22-2023 Episodic Other lower respiratory disease (2 sources) Cough; Translations: [Acute cough] 02-03-2024 Episodic Unclassified (1 source) Acute cough; Translations: [Acute cough] Onset: 02-03-2024 Past or Other Problems Problem Classification Problem Date Documented Da te Episodic/Chronic Other circulatory disease (1 source) Other specified symptoms and signs involving the circulatory and respiratory systems; Translations: [Abnormal lung sounds] Onset: 02-03-2024 Episodic Results Test Name Value Interpretation Reference Range Facility 12 Lead EKGon 12-18-2024 12 Lead EKG [facility] [address] [place] [address] 12 Lead EKG 12/18/24 0110 MR#: [id number] Acct: [id number] Name: ANTONIO CASTELLANO Rep #: [id number] : 2000 24 From: Antonio Baez MD Attending Dr: Status: DEP ER Ordering Dr: Tray Cyr DO Date: 12/18/24 Location: ED Sex: M C Admitted: Test Reason : CHEST PAIN Blood Pressure : */* mmHG Vent. Rate : 120 BPM Atrial Rate : 120 BPM P-R Int : 152 ms QRS Dur : 84 ms QT Int : 316 ms P-R-T Axes : 63 57 54 degrees QTcB Int : 446 ms Sinus tachycardia Possible Acute pericarditis Abnormal ECG Confirmed by Antonio Baez ([id number]), pictures editor SATISH HELTON ([id number]) on 12/20/2024 1:08:35 PM Referred By: JADE Confirmed By: Antonio Baez 12/20/24 1308 Date Antonio Baez MD CC: Dr. Art Breaux MD; Tray Cyr DO Signed Normal [facility] Basic Metabolic Profile (BMP )on 12-18-2024 BUN/CRE 20.8 RATIO High 10-20 [facility] Comment on above: Performed By: #### L 300.3900, L100.0100, L501.6710, L101.9900, L501.4021, L500.2500, L300.4310 #### [facility] [address] [place], [address] Calcium [Mass/Vol] 9.3 mg/dL Normal 7.6-11.0 [facility] Comment on above: Performed By: #### L 300.3900, L100.0100, L501.6710, L101.9900, L501.4021, L500.2500, L300.4310 #### [facility] [address] [place], [address] Chloride [Moles/Vol] 102 mmol/L Normal 98-108 [facility] Comment on above: Performed By: #### L 300.3900, L100.0100, L501.6710, L101.9900, L501.4021, L500.2500, L300.4310 #### [facility] [address] [place], [address] CO2 [Moles/Vol] 23.2 mmol/L Normal 21.0-32.0 [facility] Comment on above: Performed By: #### L 300.3900, L100.0100, L501.6710, L101.9900, L501.4021, L500.2500, L300.4310 #### [facility] [address] [place], [address] Creatinine [Mass/Vol] 0.81 mg/dL Normal 0.70-1.20 [facility] Comment on above: Performed By: #### L 300.3900, L100.0100, L501.6710, L101.9900, L501.4021, L500.2500, L300.4310 #### [facility] [address] [place], [address] ECRCL 129.21 ml/min Normal 50-250 [facility] Comment on above: Performed By: #### L 300.3900, L100.0100, L501.6710, L101.9900, L501.4021, L500.2500, L300.4310 #### [facility] [address] [place], [address] GAP 12 Normal 5-15 [facility] Comment on above: Performed By: #### L 300.3900, L100.0100, L501.6710, L101.9900, L501.4021, L500.2500, L300.4310 #### [facility] [address] [place], [address] GFR/1.73 sq M.predicted among non-blacks MDRD (S/P/Bld) [Vol rate/Area] 125 mL/min/{1.73_m2} Normal >60 [facility] Comment on above: Result Comment: mL/m in/1.73m2 CKD-EPI Creatinine Equation (2020) Performed By: #### L 300.3900, L100.0100, L501.6710, L101.9900, L501.4021, L500.2500, L300.4310 #### [facility] [address] [place], [address] Glucose [Mass/Vol] 114 mg/dL High 70-99 [facility] Comment on above: Performed By: #### L 300.3900, L100.0100, L501.6710, L101.9900, L501.4021, L500.2500, L300.4310 #### [facility] [address] [place], [address] Potassium [Moles/Vol] 4.3 mmol/L Normal 3.3-5.1 [facility] Comment on above: Result Comment: Hemo lysis present, Results??could be affected. ?? Performed By: #### L 300.3900, L100.0100, L501.6710, L101.9900, L501.4021, L500.2500, L300.4310 #### [facility] [address] [place], [address] Sodium [Moles/Vol] 137 mmol/L Normal 133-145 [facility] Comment on above: Performed By: #### L 300.3900, L100.0100, L501.6710, L101.9900, L501.4021, L500.2500, L300.4310 #### [facility] [address] [place], [address] Urea nitrogen [Mass/Vol] 17 mg/dL Normal 4-19 [facility] Comment on above: Performed By: #### L 300.3900, L100.0100, L501.6710, L101.9900, L501.4021, L500.2500, L300.4310 #### [facility] [address] [place], [address] CBC W/Diff, Automatedon SMEAR COMMENT SCANNED Normal [facility] Comment on above: Result Comment: MONO CYTOSIS PRESENT Performed By: #### L 300.3900, L100.0100, L501.6710, L101.9900, L501.4021, L500.2500, L300.4310 #### [facility] [address] [place], [address] CRPon 12-18-2024 C-REACTIVE PROT 141.00 mg/L High 0.0-3.0 [facility] Comment on above: Performed By: #### L 300.3900, L100.0100, L501.6710, L101.9900, L501.4021, L500.2500, L300.4310 #### [facility] [address] [place], [address] CTA Chest W/WO Contraston CTA Chest W/WO Contrast [facility] Imaging Services [address] [place] [address] CTA Chest W/WO Contrast MR#: [id number] Acct: [id number] Name: ANTONIO CASTELLANO Rep #: [id number] : 2000 M 24 From: Iman iglesias MD PCP: Dr. Art Breaux MD Status: REG ER Study: CTA Chest W/WO Contrast Date of Exam: 12/18/24 Exam# [id number] Ordering Dr: Tray Cyr DO PROCEDURE: CTA CHEST W/WO CONTRAST 12/18/2024 REASON FOR EXAM: CHEST PAIN TECHNIQUE: Procedure Code: [id number] Modality: CT Procedure: CTA CHEST W/WO CONTRAST Multiplanar Sagittal and Coronal images were obtained. CONTRAST: Isovue 370 VOLUME: 100 mL One or more dose reduction techniques were used (e.g., Automated exposure control, adjustment of the mA and/or kV according to patient size, use of iterative reconstruction technique). RADIATION DOSE SUMMARY: CTDlvol: 12.38 mGy DLP: 380 mGycm COMPARISON: None. FINDINGS: Mild bilateral basilar atelectatic pulmonary changes. Normal enhancement of the main pulmonary artery and right and left pulmonary arteries. Normal enhancement of the bilateral peripheral pulmonary arteries. There is no demonstrated pulmonary embolism. Normal thoracic aorta and visualized great vessels. There is no demonstrated aortic dissection. Normal heart and pericardium. Normal mediastinum. Normal hilar regions. Normal visualized trachea and bronchi. Normal pleura. Normal chest wall structures. Normal osseous structures. Normal visualized upper abdomen. CT/CTA Chest W/WO Contrast IMPRESSION: Mild bilateral basilar atelectatic pulmonary changes. No CT evidence of pulmonary embolus or aortic dissection. Reading Location: [place] [address] CC: Dr. Art Breaux MD; Tray Cyr DO Accounting Teacher: Signed Normal [facility] Emergency Department Summary on 12-18-2024 Emergency Department Summary [facility] Medical Records Department [address] [place] [address] Emergency Department Summary 12/18/24 MR#: [id number] Acct: [id number] Name: ANTONIO CASTELLANO Rep #: [id number] : 2000 24 From: Tray Cyr DO PCP: Dr. Art Breaux MD Status:DEP ER Location: ED HPI History of Present Illness Chief Complaint: Chest Pain Informant: patient and spouse/S.O. Narrative Narrative: Patient is a 24-year-old male with past medical history of anxiety. He recently started Prozac. He states in the last 2 days he has had mid chest discomfort without trauma or excessive activity. He states that the pain has persistently worsened since its onset and now he has shortness of breath and difficulty breathing because it "hurts to breathe". He denies any recent surgery travel or history of DVT/PE. He denies any family history of cardiac disease at a young age. Of note he does state that roughly 6 months ago he had a similar event that lasted a few days and then resolved. He states he was not evaluated at that time. However with the persistent and now worsening symptoms he presents for evaluation [facility] Medical History Anxiety Home Medications ???Medication ???Instructions ???Recorded ???Last Taken ???Type colchicine 0.6 mg tablet 0.6 mg PO BID 14 days #28 tabs 03/13 Unknown Rx fluoxetine 40 mg capsule 40 mg PO DAILY 12/18/24 Unknown Hi story ibuprofen 600 mg tablet 600 mg PO 4X/DAY 14 days #56 tabs 12/18/24 Unknown Rx oxycodone-acetaminophe n 5 mg-325 1 tab PO Q6H PRN pain 5 days #20 1 02/18/24 Unknown Rx mg tablet (Percocet) tabs pantoprazole 40 mg tablet,delayed 40 mg PO DAILY 30 days #30 tabs 1 02/18/24 Unknown Rx release (Protonix) Allergy/AdvReac Type Severity Reaction Status Date / Time No Known Allergies Allergy Verified 12/18/24 01:09 Social History Smoking Status: Never smoker [facility] ED Constitutional Constitutional ED: Denies chills or fever(s) ENT ENT ED: Denies sore throat Cardiovascular Cardiovascular: Reports chest pain and racing heartbeat Respiratory/Chest Respiratory/Chest: Reports dyspnea; Denies cough Gastrointestinal Gastrointestinal: Denies abdominal pain, diarrhea, nausea or vomiting Musculoskeletal Musculoskeletal: Denies back pain or myalgias Integumentary Denies rash Neurologic Neurologic: Denies headache(s) Psychiatric Psychiatric: Reports anxiety Hematologic/Lymphatic Hematologic/Lymphatic: Denies easy bleeding or easy bruising EXAM Physical Exam Const Vital Signs: 12/18/24 01:09 12/18/24 01:09 12/18/24 01:13 Temperature 99 F Temperature Source Oral Pulse Rate 119 H 120 H Respiratory Rate 20 H 28 H Respiratory Effort Short of Breath Blood Pressure 134/80 H Blood Pressure Mean 98 Pulse Ox 98 98 Oxygen Delivery Method 12/18/24 01:15 12/18/24 01:30 12/18/24 01:30 Temperature Temperature Source Pulse Rate 119 H 106 H Respiratory Rate 23 H 26 H Respiratory Effort Blood Pressure 109/79 120/94 H 120/94 H Blood Pressure Mean 90 103 103 Pulse Ox 99 97 Oxygen Delivery Method 12/18/24 01:45 12/18/24 01:46 12/18/24 02:01 Temperature Temperature Source Pulse Rate 112 H 111 H 114 H Respiratory Rate 15 17 Respiratory Effort Blood Pressure 128/117 H Blood Pressure Mean 122 Pulse Ox 94 Oxygen Delivery Method 12/18/24 02:09 12/18/24 02:15 12/18/24 02:30 Temperature Temperature Source Pulse Rate 106 H 103 H 100 Respiratory Rate 20 H 26 H 28 H Respiratory Effort Blood Pressure Blood Pressure Mean Pulse Ox 99 99 98 Oxygen Delivery Method Room Air 12/18/24 02:45 12/18/24 03:00 12/18/24 03:08 Temperature Temperature Source Pulse Rate 103 H 102 H 105 H Respiratory Rate 32 H 25 H 30 H Respiratory Effort Blood Pressure 111/87 H Blood Pressure Mean 94 Pulse Ox 97 98 96 Oxygen Delivery Method 12/18/24 03:15 12/18/24 03:30 12/18/24 03:45 Temperature Temperature Source Pulse Rate 109 H 106 H Respiratory Rate 20 H 18 Respiratory Effort Blood Pressure 125/80 H 110/68 106/74 Blood Pressure Mean 92 81 84 Pulse Ox 97 97 Oxygen Delivery Method 12/18/24 04:00 12/18/24 04:39 Temperature 98.4 F Temperature Source Pulse Rate 103 H 106 H Respiratory Rate 22 H 20 H Respiratory Effort Blood Pressure 112/67 109/63 Blood Pressure Mean 81 78 Pulse Ox 97 98 Oxygen Delivery Method Positive well nourished and well developed General Appearance ED: well developed; Negative for pallor HEENT HEENT Narrative: Normocephalic atraumatic Eyes PERRL and EOM (more content not included)... Normal [facility] Erythrocyte Sed Rateon 12-18 SED RATE 9 mm/hr Normal 0-20 [facility] Comment on above: Performed By: #### L 300.3900, L100.0100, L501.6710, L101.9900, L501.4021, L500.2500, L300.4310 #### [facility] [address] [place], [address] L501.4021on 12-18-2024 Trop T High Sen < 6 Normal <=22 [facility] Comment on above: Performed By: #### L 300.3900, L100.0100, L501.6710, L101.9900, L501.4021, L500.2500, L300.4310 #### [facility] [address] [place], [address] Partial Thromboplast Timeon 12-18-2024 aPTT Coag (Bld) [Time] 33.5 s Normal 24.1-36.2 [facility] Comment on above: Performed By: #### L 300.3900, L100.0100, L501.6710, L101.9900, L501.4021, L500.2500, L300.4310 #### [facility] [address] [place], [place], [id number] [phone] Prothrombin Time w/INRon INR Coag (PPP) [Relative time] 1.2 {INR} Normal [facility] Comment on above: Performed By: #### L 300.3900, L100.0100, L501.6710, L101.9900, L501.4021, L500.2500, L300.4310 #### [facility] [address] [place], [address] PT Coag (PPP) [Time] 15.4 s High 11.7-14.9 [facility] Comment on above: Performed By: #### L 300.3900, L100.0100, L501.6710, L101.9900, L501.4021, L500.2500, L300.4310 #### [facility] [address] [place], [place], [address] Troponin T HS 2 HRon 025 Trop T High Sen 6 ng/L Normal <=22 [facility] Comment on above: Performed By: #### L 300.3900, L100.0100, L501.6710, L101.9900, L501.4021, L500.2500, L300.4310 #### [facility] [address] [place], [address] CNOVon 12-14-2024 CNOV Office Visit (FAMPWS ) ANTONIO CASTELLANO ([id number]) 2000 Date Time Provider Department 12/14/24 9:40 AM [facility]U BREAUX [facility] During your visit today, we recorded the following information about you: Temperature Pulse Respiration Blood pressure 98.8 degrees 88/minute 12/minute 118/74 Weight Height 84.5 kg 1.711 m Mau Breaux MD 12/14/2024 10:14 AM Signed Chief Complaint Patient presents with: Anxiety: Stopped his Prozac almost a year ago. Stopped the increase dose 40 mg around Jan 2024. Recording using [employer] software for draft documentation of the visit was discussed with the patient/authorized telemarketing representative; all questions welcomed and answered. Patient/authorized telemarketing representative agreed to proceed HPI Antonio Ramos Nona is a 24 year old male who presents here today for Above Complaints. Accompanied today by his . Antonio Castellano is a 24-year-old male with a history of anxiety and depression, presenting for worsening symptoms. Anxiety and Depression: - Increased stress from work and home. - Symptoms have never fully resolved; fluctuate in severity. - Experiences unexplained mood changes. - Denies recent panic attacks. - Denies suicidal ideation or thoughts of harming others. - Previously on Prozac 40 mg, discontinued after one month due to discomfort with taking medication. - Engaged in counseling through [facility]; inconsistent due to scheduling issues. - Previously saw Jermaine Vela PhD for counseling but stopped due to work schedule conflicts. PHQ-9 More data may exist 12/01/2023 12/22/2023 12/23/2023 02/17/2024 12/14/2024 PHQ-9 Scores Little interest or pleasure in doing things: More than half the days More than half the days More than half the days Several days More than half the days Feeling down, depressed, or hopeless: More than half the days Nearly every day Nearly every day More than half the days More than half the days Trouble falling or staying asleep, or sleeping too much Several days More than half the days More than half the days Several days Several days Feeling tired or having little energy Nearly every day Nearly every day Nearly every day Several days More than half the days Poor appetite or overeating Nearly every day Nearly every day Nearly every day Nearly every day More than half the days Feeling bad about yourself - or that you are a failure or have let yourself or your family down Nearly every day Nearly every day Nearly every day Several days Nearly every day Trouble concentrating on things, such as reading the newspaper or watching television Nearly every day Nearly every day More than half the days Several days Several days Moving or speaking so slowly that other people could have noticed. Or the opposite - being so fidgety or restless that you have been moving around a lot more than usual Not at all More than half the days Several days Not at all Several days Thoughts that you would be better off , or of hurting yourself in some way Several days Several days Not at all Not at all Not at all PHQ-9 Score 18 22 19 10 14 Details Data saved with a previous flowsheet row definition RICCO-7 More data exists 12/01/2023 12/22/2023 12/23/2023 02/17/2024 12/14/2024 RCICO-7 All Questions Feeling nervous, anxious, or on edge Nearly Everyday Nearly Everyday Nearly Everyday Several days Nearly Everyday Not being able to stop or control worrying Nearly Everyday Nearly Everyday Nearly Everyday Several days Nearly Everyday Worrying too much about different things Nearly Everyday Nearly Everyday Nearly Everyday Several days Nearly Everyday Trouble relaxing Nearly Everyday Nearly Everyday Nearly Everyday Several days Nearly Everyday Being so restless that it is hard to sit still Several days Several days Nearly Everyday Not at all Several days Becoming easily annoyed or irritable Nearly Everyday Nearly Everyday Nearly Everyday More than half the days Nearly Everyday Feeling afraid, as if something awful might happen Nearly Everyday Nearly Everyday Nearly Everyday Several days Nearly Everyday RICCO-7 Score 19 19 21 7 19 Past medical history, appointments, medications, allergies reviewed. Previous Medical History PAST MEDICAL HISTORY Diagnosis Date RICCO (generalized anxiety disorder) GERD (gastroesophageal reflux disease) Migraines Muscular dystrophy (HCC) congenital Sciatica Previous Surgical History PAST SURGICAL HISTORY Procedure Laterality Date PAST SURGICAL HISTORY OF 2009 nose fracture repair PAST SURGICAL HISTORY OF mole removal PAST SURGICAL HISTORY OF EGD in childhood TONSILLECTOMY AND ADENOIDECTOMY childhood Family History FAMILY HISTORY Problem Relation Age of Onset Depression Mother No Known Problems Father No Known Problems Sister Diabetes Maternal Grandfather Stroke P (more content not included)... Normal [facility] CNOVon 02-03-2024 CN Office Visit (DL ) ANTONIO CASTELLANO ([id number]) 2000 M Date Time Provider Department 02/03/24 9:20 AM AVINASH KOHLER During your visit today, we recorded the following information about you: Temperature Pulse Respiration Blood pressure 97.7 degrees 64/minute 18/minute 126/88 Weight 79.8 kg Avinash Kohler APRN.CNP 02/03/2024 10:53 AM Signed 02/03/2024 Patient presents with: Cough: And chest congestion x3 days, daughter just got over pneumonia SUBJECTIVE: This is a 23 year old that is here today for Above Complaints. Three days ago started with cough and chest congestion. Also admits to sinus pressure, nasal congestion, rhinorrhea, headaches, and muscle .Daughter just got over pneumonia. Did not self test for COVID-19. No using any OTC medications at this time. Denies fevers, chills, sore throat SOB, dyspnea, wheezing, nausea, vomiting or diarrhea PAST MEDICAL HISTORY Diagnosis Date RICCO (generalized anxiety disorder) GERD (gastroesophageal reflux disease) Migraines Muscular dystrophy (HCC) congenital Sciatica ALLERGIES Mold MEDICATIONS Current Outpatient Medications Medication Sig FLUoxetine (PROZAC) 40 mg capsule Take 1 capsule by mouth once daily. multivitamin tablet Take 1 tablet by mouth once daily. No current facility-administered medications for this visit. Medications and allergies reviewed by this provider. SOCIAL HISTORY Social History Tobacco Use Smoking status: Never Smokeless tobacco: Never Vaping Use Vaping status: Never Used Substance Use Topics Alcohol use: Not Currently Drug use: Never REVIEW OF SYSTEMS All other reviewed and negative other than HPI. OBJECTIVE: BP 126/88 Pulse 64 Temp 36.5 ?C (97.7 ?F) Resp 18 Wt 79.8 kg (175 lb 14.8 oz) SpO2 98% BMI 27.26 kg/m? . Vital signs reviewed by this provider. APPEARANCE Well appearing, alert, in no acute distress, well-hydrated, well nourished. EYES PERRLA, conjunctiva and sclera normal. EARS External ears normal, canals clear NOSE/SINUS Nares normal. Septum midline. Mucosa normal. No drainage or sinus tenderness. NECK Supple, no adenopathy; thyroid symmetric, normal size, no bruits HEART RRR with normal S1 and S2, no murmurs, no gallops, no JVD appreciated LUNG Diminshed RLL otherwise no wheezes, rhonchi or rales. Able to speak in fuls SKIN Skin color, texture, turgor normal, no suspicious rashes or lesions to exposed skin Influenza Vaccine(1) Never done Covid-19 Vaccine( season) Never done HPV Vaccine(2 - Male 3-dose series) due on 10/20/2023 Hepatitis B Vaccine(1 of 3 - 19+ 3-dose series) due on 09/21/2024 Depression Screening due on 09/21/2024 Anxiety Screening due on 09/21/2024 DTaP,Tdap,Td Vaccine(2 - Td or Tdap) due on 09/21/2033 Hepatitis C Screening Discontinued HIV Screening Discontinued ASSESSMENT/PLAN: 1. Acute cough - ICD9: 786.2, ICD10: R05.1 (primary diagnosis) - declines COVID-19 testing - no red flag symptoms or exam findings - red flag symptoms discussed, verbalizes understanding - may use OTC cough and cold preparations as directed on packaging go symptoms - XR CHEST 2V FRONTAL/LAT - follow-up if symptoms fail to improve to ER with red flag symptoms 2. Abnormal lung sounds - ICD9: 786.7, ICD10: R09.89 - XR CHEST 2V FRONTAL/LAT Avinash Kohler, ACCOUNTS MANAGER.EYEGLASS FRAMES POLISHER Prescription instructions reviewed with patient as applicable. Patient advised if symptoms do not improve or if symptoms worsen sooner, to contact their primary care physician. Potential red flag symptoms discussed with the patient. Reviewed appropriate action plan to take if red flag symptoms occur. Patient agreeable to treatment plan. Medical Decision Making: Problems: Low: Acute, uncomplicated illness or injury Data: Unique test(s) ordered: 1 Risk: Moderate: Moderate risk from testing/treatment Medical Decision Making Level: 3 - Low Referring Provider: SELF [200] Allergies As of Date: 02/03/2024 Noted Allergy Reaction MOLD 07/20/2007 Date Reviewed: 02/03/2024 Reviewed by: Mone Gillespie LPN - Fully Assessed Reason for Visit: Cough [28] Cmt: And chest congestion x3 days, daughter just got over pneumonia Primary Visit Diagnosis:Acute cough [R05.1] Other Visit Diagnosis:Abnormal lung sounds [R09.89] Order(s):XR CHEST 2V FRONTAL/LAT [[id number]] Order #: [id number] FUTURE Prescriptions as of 02/03/2024 - FLUoxetine (PROZAC) 40 mg capsule Take 1 capsule by mouth once daily. - multivitamin tablet Take 1 tablet by mouth once daily. Problem List As Of Date: 02/03/2024 (None) Encounter Status:Closed by AVINASH KOHLER on 02/03/24 Normal [facility] 02-03-2024 DEWEYN Telephone (FAMPWS) ANTONIO CASTELLANO ([id number]) 2000 Date Time Provider Department 02/03/24 AVINASH KOHLER During your visit today, we recorded the following information about you: Aniya Whitehead LPN 02/03/2024 10:16 AM Addendum ----- Message from Avinash Kohler APRN.EYEGLASS FRAMES POLISHER sent at 02/03/2024 10:07 AM EST ----- Normal chest xray. ISAÍAS Morrow Beth, LPN 02/03/2024 10:17 AM Signed Phoned patient went over results from Avinash Kohler SMASH PIECER with understanding. Allergies As of Date: 02/03/2024 Noted Allergy Reaction MOLD 07/20/2007 Date Reviewed: 02/03/2024 Reviewed by: Mone Gillespie LPN - Fully Assessed Reason for Visit: Results [95] Prescriptions as of 02/03/2024 - FLUoxetine (PROZAC) 40 mg capsule Take 1 capsule by mouth once daily. - multivitamin tablet Take 1 tablet by mouth once daily. Problem List As Of Date: 02/03/2024 (None) Encounter Status:Closed by ANIYA WHITEHEAD on 02/03/24 Normal [facility] XR CHEST 2V FRONTAL/LATon XR CHEST 2V FRONTAL/LAT * * *Final Report* * * DATE OF EXAM: Feb 03 2024 10:02AM WOX [id number] - XR CHEST 2V FRONTAL/LAT / PROCEDURE REASON: multiple diagnoses * * * * Physician Interpretation * * * * EXAMINATION: CHEST RADIOGRAPH (2 VIEW FRONTAL and LATERAL) CLINICAL HISTORY: Acute cough Abnormal lung sounds MQ: XC2_6 EXAM DATE/TIME: 02/03/2024 10:02 AM COMPARISON: No relevant prior studies available. RESULT: Lines, tubes, and devices: None. Lungs and pleura: No consolidation. No lung mass. No pleural effusion. No pneumothorax. Cardiomediastinal silhouette: Normal cardiomediastinal silhouette. Bones and soft tissues: Unremarkable. IMPRESSION: No acute radiographic abnormality. Accounting Teacher: MORGAN Transcribe Date/Time: Feb 03 2024 10:03A Dictated by : BETTE ANDERSON MD This examination was interpreted and the report reviewed and electronically signed by: BETTE ANDERSON MD on Feb 03 2024 10:04AM EST [id number] Normal [facility] XR Chest PA and Lateralon IMPRESSION: No acute radiographic abnormality. Accounting Teacher: MORGAN Transcribe Date/Time: Feb 03 2024 10:03A Dictated by : BETTE ANDERSON MD This examination was interpreted and the report reviewed and electronically signed by: BETTE ANDERSON MD on Feb 03 2024 10:04AM EST DIVISION OF RADIOLOGY * * *Final Report* * * DATE OF EXAM: Feb 03 2024 10:02AM WOX [id number] - XR CHEST 2V FRONTAL/LAT / PROCEDURE REASON: multiple diagnoses * * * * Physician Interpretation * * * * EXAMINATION: CHEST RADIOGRAPH (2 VIEW FRONTAL & LATERAL) CLINICAL HISTORY: Acute cough Abnormal lung sounds MQ: XC2_6 EXAM DATE/TIME: 02/03/2024 10:02 AM COMPARISON: No relevant prior studies available. RESULT: Lines, tubes, and devices: None. Lungs and pleura: No consolidation. No lung mass. No pleural effusion. No pneumothorax. Cardiomediastinal silhouette: Normal cardiomediastinal silhouette. Bones and soft tissues: Unremarkable. DIVISION OF RADIOLOGY Provider, [facility] - 02/03/2024 * * *Final Report* * * DATE OF EXAM: Feb 03 2024 10:02AM WOX 5291 - XR CHEST 2V FRONTAL/LAT / PROCEDURE REASON: multiple diagnoses * * * * Physician Interpretation * * * * EXAMINATION: CHEST RADIOGRAPH (2 VIEW FRONTAL & LATERAL) CLINICAL HISTORY: Acute cough Abnormal lung sounds MQ: XC2_6 EXAM DATE/TIME: 02/03/2024 10:02 AM COMPARISON: No relevant prior studies available. RESULT: Lines, tubes, and devices: None. Lungs and pleura: No consolidation. No lung mass. No pleural effusion. No pneumothorax. Cardiomediastinal silhouette: Normal cardiomediastinal silhouette. Bones and soft tissues: Unremarkable. IMPRESSION IMPRESSION: No acute radiographic abnormality. Accounting Teacher: MORGAN Transcribe Date/Time: Feb 03 2024 10:03A Dictated by : BETTE ANDERSON MD This examination was interpreted and the report reviewed and electronically signed by: BETTE ANDERSON MD on Feb 03 2024 10:04AM EST [facility] Radiology Study observation (narrative) [facility] XR Chest PA and LateralOrder ed By: [facility] Provider on 02-03-2024 [facility] CNOVon 12-23-2023 CNOV Office Visit (FAMPWS ) NONAANTONIO Ramos ([id number]) 2000 M Date Time Provider Department 12/23/23 10:40 AM [facility] During your visit today, we recorded the following information about you: Pulse Respiration Blood pressure Weight 93/minute 16/minute 110/72 78.7 kg Mau Breaux MD 12/23/2023 11:26 AM Signed Chief Complaint Patient presents with: Follow Up: 3 month HPI Antonio Castellano is a 23 year old male who presents here today for 3 month follow up of anxiety. . Previous HPI: Patient states that he does not have a history of depression or anxiety, but would like a referral for counseling. States that he would like emotional management" and anger management. States that small things can make him angry and can shut down or yell when he is angry. has expressed concerns with his anger. Under more stress recently with recent move and his just found out his is 5 weeks . Depression screening negative. RICCO 7: 13 today. Symptoms present for years. Interested in rx. Started on Prozac 20 mg daily and referred to counseling. Since last OV, he has been taking the prozac as prescribed without side effects but did run out for about 1-2 weeks more than 1 month ago. States that symptoms have been worse in the last 1-2 months. States that his recently had a miscarriage in the last 1-2 months which has worsened his anxiety and caused some new depression symptoms. Going to counseling with Jermaine Vela monthly and has f/u later this week. Denies SI/HI, panic symptoms. Has weapons at home, but are locked up. Would like to try higher dosage of rx. RICCO-7 09/22/2023 12/01/2023 12/22/2023 12/23/2023 RICCO-7 All Questions Feeling nervous, anxious, or on edge More than half the days Nearly Everyday Nearly Everyday Nearly Everyday Not being able to stop or control worrying Several days Nearly Everyday Nearly Everyday Nearly Everyday Worrying too much about different things More than half the days Nearly Everyday Nearly Everyday Nearly Everyday Trouble relaxing More than half the days Nearly Everyday Nearly Everyday Nearly Everyday Being so restless that it is hard to sit still More than half the days Several days Several days Nearly Everyday Becoming easily annoyed or irritable More than half the days Nearly Everyday Nearly Everyday Nearly Everyday Feeling afraid, as if something awful might happen More than half the days Nearly Everyday Nearly Everyday Nearly Everyday RICCO-7 Score 13 19 19 21 Details PHQ-9 12/01/2023 12/22/2023 12/23/2023 PHQ-9 Scores Little interest or pleasure in doing things: More than half the days More than half the days More than half the days Feeling down, depressed, or hopeless: More than half the days Nearly every day Nearly every day Trouble falling or staying asleep, or sleeping too much Several days More than half the days More than half the days Feeling tired or having little energy Nearly every day Nearly every day Nearly every day Poor appetite or overeating Nearly every day Nearly every day Nearly every day Feeling bad about yourself - or that you are a failure or have let yourself or your family down Nearly every day Nearly every day Nearly every day Trouble concentrating on things, such as reading the newspaper or watching television Nearly every day Nearly every day More than half the days Moving or speaking so slowly that other people could have noticed. Or the opposite - being so fidgety or restless that you have been moving around a lot more than usual Not at all More than half the days Several days Thoughts that you would be better off , or of hurting yourself in some way Several days Several days Not at all PHQ-9 Score 18 22 19 Details Patient also notes some intermittent neck and chest pressure in the last couple of weeks which is worsened with exertion. Denies radiation to shoulder/arm, nausea, SOB, diaphoresis, palpitations, lightheadedness. Past medical history, appointments, medications, allergies reviewed. Previous Medical History PAST MEDICAL HISTORY Diagnosis Date GERD (gastroesophageal reflux disease) Migraines Muscular dystrophy (HCC) congenital Sciatica Previous Surgical History PAST SURGICAL HISTORY Procedure Laterality Date PAST SURGICAL HISTORY OF 2009 nose fracture repair PAST SURGICAL HISTORY OF mole removal PAST SURGICAL HISTORY OF EGD in childhood TONSILLECTOMY AND ADENOIDECTOMY childhood Family History FAMILY HISTORY Problem Relation Age of Onset Depression Mother No Known Problems Father No Known Problems Sister Diabetes Maternal Grandfather Stroke Paternal Grandfather Ischemic Heart Disease Paternal Grandfather Ischemic Heart Disease Paternal Aunt Brain Cancer Paternal Aunt Stroke Paternal Aunt Patient Allergies ALLERGIES (more content not included)... Normal [facility] XR CHEST 1 VIEWon 06-18-2023 XR CHEST 1 VIEW Interpreted By: Dennis Morales, STUDY: XR CHEST 1 VIEW INDICATION: Signs/Symptoms:Z00.00. COMPARISON: None ACCESSION NUMBER(S): [id number] ORDERING CLINICIAN: SEAMUS MCGILL FINDINGS: No consolidation, effusion, edema, or pneumothorax. Heart size within normal limits. Minimal scoliosis. IMPRESSION: No evidence of acute intrathoracic abnormality. Signed by: Dennis Kapadia 06/21/2023 7:13 AM Dictation workstation: [id number] [facility] Vital Signs Date Time Vital Sign Value Performing Clinician Vickey gould 02-03-2024 09:35-0500 Body mass index (BMI) [Ratio] 27.26 kg/m2 Avinash Podlogar ACCOUNTS MANAGER.DEWEY Work Phone: [facility] 02-03-2024 09:35-0500 Body temperature 97.7 [degF] Avinash Podlogar ACCOUNTS MANAGER.EYEGLASS FRAMES POLISHER Work Phone: [facility] 02-03-2024 09:35-0500 Body weight 79.8 kg Avinash Podlogar ACCOUNTS MANAGER.EYEGLASS FRAMES POLISHER Work Phone: [facility] 02-03-2024 09:35-0500 Diastolic blood pressure 88 mm[Hg] Avinash Podlogar ACCOUNTS MANAGER.EYEGLASS FRAMES POLISHER Work Phone: [facility] 02-03-2024 09:35-0500 Heart rate 64 /min Avinash Podlogar ACCOUNTS MANAGER.EYEGLASS FRAMES POLISHER Work Phone: [facility] 02-03-2024 09:35-0500 Respiratory rate 18 /min Avinash Podlogar ACCOUNTS MANAGER.EYEGLASS FRAMES POLISHER Work Phone: [facility] 02-03-2024 09:35-0500 SaO2% (BldA) [Mass fraction] 98 % Avinash Podlogar ACCOUNTS MANAGER.EYEGLASS FRAMES POLISHER Work Phone: [facility] 02-03-2024 09:35-0500 Systolic blood pressure 126 mm[Hg] Avinash Podlogar ACCOUNTS MANAGER.EYEGLASS FRAMES POLISHER Work Phone: [facility] 12-23-2023 10:50-0500 Body mass index (BMI) [Ratio] 26.9 kg/m2 Mau Breaux MD Work Phone: [facility] 12-23-2023 10:50-0500 Body weight 78.74 kg Mau Breaux MD Work Phone: [facility] 12-23-2023 10:50-0500 Diastolic blood pressure 72 mm[Hg] Mau Breaux MD Work Phone: [facility] 12-23-2023 10:50-0500 Heart rate 93 /min Mau Breaux MD Work Phone: [facility] 12-23-2023 10:50-0500 Respiratory rate 16 /min Mau Breaux MD Work Phone: [facility] 12-23-2023 10:50-0500 SaO2% (BldA) [Mass fraction] 99 % Mau Breaux MD Work Phone: [facility] 12-23-2023 10:50-0500 Systolic blood pressure 110 mm[Hg] Mau Breaux MD Work Phone: [facility] 09-22-2023 08:55-0400 Body height 171.1 cm Mua Breaux MD Work Phone: [facility] 09-22-2023 08:55-0400 Body mass index (BMI) [Ratio] 25.79 kg/m2 Mau Breaux MD Work Phone: [facility] 09-22-2023 08:55-0400 Body weight 75.5 kg Mau Breaux MD Work Phone: [facility] Comment on above: weight is correct 09-22-2023 08:55-0400 Diastolic blood pressure 62 mm[Hg] Mau Breaux MD Work Phone: [facility] 09-22-2023 08:55-0400 Heart rate 97 /min Mau Breaux MD Work Phone: [facility] 09-22-2023 08:55-0400 Respiratory rate 16 /min Mau Breaux MD Work Phone: [facility] 09-22-2023 08:55-0400 SaO2% (BldA) [Mass fraction] 98 % Mau Breaux MD Work Phone: [facility] 09-22-2023 08:55-0400 Systolic blood pressure 114 mm[Hg] Mau Breaux MD Work Phone: [facility] Encounters Encounter Date Encounter Type Care Provider Facility Start: 12-18-2024 End: 12-18-2024 Emergency department patient visit Tray Cyr Facility:[facility] Start: 12-14-2024 End: 12-14-2024 ambulatory MAU BREAUX Facility:[facility] Start: 03-15-2024 End: 03-15-2024 Chart abstracting Zora Bustamante [facility] Work Phone: Psychology Start: 02-17-2024 End: 02-17-2024 ambulatory JERMAINE VELA Facility:[facility] Start: 02-03-2024 End: 02-03-2024 Telephone encounter Avinash Kohler APRN.CNP Work Phone: [facility] [place] Comment on above: Results Start: 02-03-2024 End: 02-03-2024 Subsequent hospital visit by physician Xr [facility] Work Phone: Radiology Comment on above: Acute cough [R05.1] Start: 02-03-2024 End: 02-03-2024 ambulatory AVINASH PODLOGMELINDA Facility:[facility] Start: 02-03-2024 End: 02-03-2024 Patient encounter procedure Avinash Kohler APRN.CNP Work Phone: [facility] [place] Comment on above: Acute cough (Primary Dx); Abnormal lung sounds Start: 12-25-2023 End: 12-25-2023 ambulatory JERMAINE VELA Facility:[facility] Start: 12-23-2023 End: 12-23-2023 ambulatory MAU BREAUX Facility:[facility] Start: 12-23-2023 End: 12-23-2023 Patient encounter procedure Mau Breaux MD Work Phone: [facility] [place] Comment on above: Anxiety with depress ion (Primary Dx); Chest pain, unspecified type Start: 11-21-2023 End: 11-24-2023 Refill Mau Breaux MD Work Phone: [facility] [place] Comment on above: Refill Request Prozac medication Start: 09-29-2023 Telephone encounter Zora russell [facility] Work Phone: Psychology Comment on above: bh consult Start: 09-26-2023 ambulatory Mau Breaux MD Work Phone: [facility] [place] Comment on above: Starting Therapy Start: 09-23-2023 Telephone encounter Art Breaux MD Work Phone: [facility] [place] Comment on above: Results Start: 09-22-2023 End: 09-22-2023 Patient encounter procedure Mau Breaux MD Work Phone: [facility] [place] Comment on above: RICCO (generalized anx iety disorder) (Primary Dx); Poison mariusz dermatitis; Persistent dry cough; Encounter for screening examination for other mental health and behavioral disorders; Encounter for immunization Start: 09-09-2023 E-mail encounter fro m caregiver [facility] [place] Start: 09-09-2023 Patient encounter procedure [facility] [place] Comment on above: Appointment Start: 06-18-2023 End: 06-19-2023 ambulatory SEAMUS MIOTTO V [facility] Start: 06-18-2023 End: 06-19-2023 Encounter for general adult medical examination without abnormal findings SEAMUS HAYSKING [place] [facility] Start: 06-18-2023 End: 06-18-2023 Patient encounter status Shae 2 [facility] Work Phone: Start: 06-18-2023 End: 06-18-2023 Subsequent hospital visit by physician Shae X-Ray 2 [facility] Comment on above: Encounter for genera l adult medical examination without abnormal findings Procedures Date Procedure Procedure Detail Performing Clinician Start: 02-03-2024 Radiologic exam ches t 2 views Avinash Podlogar ACCOUNTS MANAGER.EYEGLASS FRAMES POLISHER Work Phone: Start: 09-22-2023 Adult depression screening assessment Mau Breaux MD Work Phone: Start: 06-18-2023 XR CHEST 1 VIEW SEAMUS PUCKETTO [place] Plan of Treatment Date Care Activity Detail Author Start: 02-24-2048 Zoster Vaccines (1 of 2) Zoste r Vaccines (1 of 2) [facility] Start: 09-21-2033 Urine microalbumin profile DTaP,Tdap,Td Vaccine (2 - Td or Tdap) [facility] Start: 09-21-2024 Anxiety Screening Anxiety Screening [facility] Start: 09-21-2024 Covid-19 Vaccine ( season) Covid-19 Vaccine ( season) [facility] Comment on above: Postponed from 10/18 (Declined at this time) Start: 09-21-2024 Depression Screening Depression Scre ening [facility] Start: 09-21-2024 Hepatitis B Vaccine (1 of 3 - 19+ 3-dose series) Hepatitis B Vaccine (1 of 3 - 19+ 3-dose series) [facility] Comment on above: Postponed from 02/23 (Declined at this time) Start: 03-24-2024 End: 03-24-2024 Patient encounter procedure 03/24/2024 9:40 AM EST Office Visit [facility] [address] [place] [address] Mau Breaux MD [address] [place], [place] [id number] 3 month follow up [facility] [place] Comment on above: 3 month follow up Start: 12-23-2023 End: 12-23-2023 Patient encounter procedure 12/23/2023 10:40 AM EST Office Visit [facility] Camilo [place] [address] [place] [phone] Mau Breaux MD [address] [place] [phone] 3 month follow up [facility] [place] Comment on above: 3 month follow up Start: 10-20-2023 HPV Vaccine (2 - Mal e 3-dose series) HPV Vaccine (2 - Male 3-dose series) [facility] Start: 10-19-2023 Covid-19 Vaccine ( season) Covid-19 Vaccine () [facility] Start: 10-19-[address] [facility] Start: 09-22-2023 End: 12-22-2023 Thyrotropin [Units/volume] in Serum or Plasma [facility] Work Phone: Comment on above: Expected: 09/22/2023 , Expires: 12/22/2023 Start: 09-22-2023 End: 12-22-2023 Thyroxine (T4) free [Mass/volume] in Serum or Plasma [facility] Comment on above: Expected: 09/22/2023 , Expires: 12/22/2023 Start: 09-22-2023 End: 09-22-2023 Patient encounter procedure 09/22/2023 9:00 AM EDT Office Visit [facility] Camilo [place] [address] [place] [phone] Mau Breaux MD [address] [place], [place] [phone] est care [facility] [place] Comment on above: est care Start: 10-18-2022 COVID-19 Vaccine ( season) COVID-19 Vaccine (2022-24 season) [facility] Start: 02-24-2020 DTaP/Tdap/Td Vaccine s (1 - Tdap) DTaP/Tdap/Td Vaccines (1 - Tdap) [facility] Start: 2017 Hepatitis B Vaccine (1 of 3 - 19+ 3-dose series) Hepatitis B Vaccine (1 of 3 - 19+ 3-dose series) [facility] Start: 2017 Hepatitis B Vaccines (1 of 3 - 19+ 3-dose series) Hepatitis B Vaccines (1 of 3 - 19+ 3-dose series) [facility] Start: 2017 Urine microalbumin profile DTaP,Tdap,Td Vaccine (1 - Tdap) [facility] Start: 02-24-2016 Anxiety Screening Anxiety Screening [facility] Start: 02-24-2016 Depression Screening Depression Scre ening [facility] Start: 02-24-2016 [facility]atitis [facility] Start: 02-24-2016 HIV screening HIV Screening [facility] Start: 2013 HPV Vaccine (1 - Mal e 3-dose series) HPV Vaccine (1 - Male 3-dose series) [facility] Start: 2013 HPV Vaccines (1 - Ma le 3-dose series) HPV Vaccines (1 - Male 3-dose series) [facility] Start: 02-24-2012 Peds To Adult Transi tion Annual Assessment Peds To Adult Transition Annual Assessment [facility] Start: 2011 Varicella vaccination Varicell a Vaccines (1 of 2 - 13+ 2-dose series) [facility] Start: 2010 Peds To Adult Transi tion Initial Discussion Peds To Adult Transition Initial Discussion [facility] Start: 1999 MMR Vaccines (1 of 1 - Standard series) MMR Vaccines (1 of 1 - Standard series) [facility] Start: 1998 HIV screening HIV Screening [facility] Start: 1998 Lipid panel Lipid Panel [facility] Start: 1998 Yearly Adult Physical Yearly Adult P hysical [facility] End: 06-18-2023 XR Chest Single view [facility] Work Phone: Comment on above: Once for 1 Occurrenc es starting 06/18/2023 until 06/18/2023 Immunizations Immunization Date Immunization Notes Care Provider Ino horne 09-22-2023 Human Papillomavirus 9-valent vaccine Mau Breaux MD Work Phone: [facility] 09-22-2023 tetanus toxoid, redu river diphtheria toxoid, and acellular pertussis vaccine, adsorbed Mau Breaux MD Work Phone: [facility] Payers Date Payer Category Payer Self-pay 2023 Unknown OSBALDO ROBLERO UEHPN [id number] 2023-Present [phone] [address] [place] [address] HMO [id number] 2023 Unknown [id number] Unknown [id number] Social History Date Type Detail Facility Tobacco smoking stat [facility] Tobacco smoking consumption unknown [facility] Start: 2000 Sex assigned at Not on file [facility] Work Phone: Start: 09-22-2023 End: 12-22-2023 Gender identity Not on file [facility] Start: 06-08-2023 End: 06-18-2023 Exposure to SARS-CoV-2 (event) Not sure [facility] Start: 09-22-2023 [facility] tobacco [facility] Start: 09-22-2023 Tobacco use and exposure Smokeless tobacco non-user [facility] Start: 09-22-2023 End: 02-03-2024 Alcohol intake Ex-drinker (finding) [facility] Start: 09-22-2023 End: 12-22-2023 History of Social function [facility] National Score (1-10 0), lower number is lower risk 80 [facility] Has the electric, [employer], [employer], or water company threatened to shut off services in your home in past 12Mo No [facility] Are you now , , , , never or living with a partner? [facility] How often to you hav e a drink containing alcohol? Never [facility] How hard is it for y ou to pay for the very basics like food, housing, medical care, and heating Somewhat hard [facility] Do you feel stress - tense, restless, nervous, or anxious, or unable to sleep at night because your mind is troubled all the time - these days [OSQ] To some extent [facility] (I/We) worried wheth er (my/our) food would run out before (I/we) got money to buy more. Sometimes true [facility] Clinical Notes 09-12-2023 to 12-14-2024 Zora Bustamante [facility] - 03/15/2024 8:50 AM ESTTelephone Encounter - Aniya Whitehead LPN - 02/03/2024 10:17 AM ESTTelephone Encounter - Aniya Whitehead LPN - 02/03/2024 10:17 AM EST Note Date & Type Note Facility 12-14-2024 Note HNO ID: [id number] Author: MAU BREAUX MD Service: ? Author Type: Physician Type: Progress Notes Filed: 12/14/2024 10:14 Note Text: Chief Complaint Patient presents with: Anxiety: Stopped his Prozac almost a year ago. Stopped the increase dose 40 mg around Jan 2024. Recording using [employer] software for draft documentation of the visit was discussed with the patient/authorized telemarketing representative; all questions welcomed and answered. Patient/authorized telemarketing representative agreed to proceed HPI Antonio Castellano is a 24 year old male who presents here today for Above Complaints. Accompanied today by his . Antonio Castellano is a 24-year-old male with a history of anxiety and depression, presenting for worsening symptoms. Anxiety and Depression: - Increased stress from work and home. - Symptoms have never fully resolved; fluctuate in severity. - Experiences unexplained mood changes. - Denies recent panic attacks. - Denies suicidal ideation or thoughts of harming others. - Previously on Prozac 40 mg, discontinued after one month due to discomfort with taking medication. - Engaged in [facility] through [facility]; inconsistent due to scheduling issues. - Previously saw Jermaine Vela PhD for counseling but stopped due to work schedule conflicts. PHQ-9 More data may exist 12/01/2023 12/22/2023 12/23/2023 02/17/2024 12/14/2024 PHQ-9 Scores Little interest or pleasure in doing things: More than half the days More than half the days More than half the days Several days More than half the days Feeling down, depressed, or hopeless: More than half the days Nearly every day Nearly every day More than half the days More than half the days Trouble falling or staying asleep, or sleeping too much Several days More than half the days More than half the days Several days Several days Feeling tired or having little energy Nearly every day Nearly every day Nearly every day Several days More than half the days Poor appetite or overeating Nearly every day Nearly every day Nearly every day Nearly every day More than half the days Feeling bad about yourself - or that you are a failure or have let yourself or your family down Nearly every day Nearly every day Nearly every day Several days Nearly every day Trouble concentrating on things, such as reading the newspaper or watching television Nearly every day Nearly every day More than half the days Several days Several days Moving or speaking so slowly that other people could have noticed. Or the opposite - being so fidgety or restless that you have been moving around a lot more than usual Not at all More than half the days Several days Not at all Several days Thoughts that you would be better off , or of hurting yourself in some way Several days Several days Not at all Not at all Not at all PHQ-9 Score 18 22 19 10 14 Details Data saved with a previous flowsheet row definition RICCO-7 More data exists 12/01/2023 12/22/2023 12/23/2023 02/17/2024 12/14/2024 RICCO-7 All Questions Feeling nervous, anxious, or on edge Nearly Everyday Nearly Everyday Nearly Everyday Several days Nearly Everyday Not being able to stop or control worrying Nearly Everyday Nearly Everyday Nearly Everyday Several days Nearly Everyday Worrying too much about different things Nearly Everyday Nearly Everyday Nearly Everyday Several days Nearly Everyday Trouble relaxing Nearly Everyday Nearly Everyday Nearly Everyday Several days Nearly Everyday Being so restless that it is hard to sit still Several days Several days Nearly Everyday Not at all Several days Becoming easily annoyed or irritable Nearly Everyday Nearly Everyday Nearly Everyday More than half the days Nearly Everyday Feeling afraid, as if something awful might happen Nearly Everyday Nearly Everyday Nearly Everyday Several days Nearly Everyday RICCO-7 Score 19 19 21 7 19 Past medical history, appointments, medications, allergies reviewed. Previous Medical History PAST MEDICAL HISTORY Diagnosis Date RICCO (generalized anxiety disorder) GERD (gastroesophageal reflux disease) Migraines Muscular dystrophy (HCC) congenital Sciatica Previous Surgical History PAST SURGICAL HISTORY Procedure Laterality Date PAST SURGICAL HISTORY OF 2009 nose fracture repair PAST SURGICAL HISTORY OF mole removal PAST SURGICAL HISTORY OF EGD in childhood TONSILLECTOMY AND ADENOIDECTOMY childhood Family History FAMILY HISTORY Problem Relation Age of Onset Depression Mother No Known Problems Father No Known Problems Sister Diabetes Maternal Grandfather Stroke Paternal Grandfather Ischemic Heart Disease Paternal Grandfather Ischemic Heart Disease Paternal Aunt Brain Cancer Paternal Aunt Stroke Paternal Aunt Patient Allergies ALLERGIES Allergen Reactions Mold Current Medications Current Outpatient Medications on File Prior to Visit Medication Sig multivitamin ta (more content not included)... [facility] 03-15-2024 Note HNO ID: [id number] Author: ZORA BUSTAMANTE [facility] Service: ? Author Type: Counselor Type: Progress Notes Filed: 03/15/2024 08:53 Note Text: Behavioral Health Social Work Progress Note Patient identified for [facility] from: PCP Reason for referral: [facility] Behavioral Health Resources: Psychology - talk therapy [facility] encounter type: MyChart Message Attempts to Outreach: 1 attempt Referral made: Psychology - Internal Psychology-Internal referral type: Therapy Final Disposition: Resources given Patient Discharged?: No Patient reported that caregiver was able to meet their needs today?: N/A therapist sending patient contact information to schedule with Dr. Jermaine Vela. Dr. Breaux has placed an wanting patient to be scheduled with Dr. Vela. Zora Bustamante [facility] March 15, 2024 [facility] 03-15-2024 History of Presen t illness Narrative Behavioral Health Social Work Progress Note Patient identified for [facility] from: PCP Reason for referral: [facility] Behavioral Health Resources: Psychology - talk therapy [facility] encounter type: MyChart Message Attempts to Outreach: 1 attempt Referral made: Psychology - Internal Psychology-Internal referral type: Therapy Final Disposition: Resources given Patient Discharged?: No Patient reported that caregiver was able to meet their needs today?: N/A therapist sending patient contact information to schedule with Dr. Jermaine Vela. Dr. Breaux has placed an wanting patient to be scheduled with Dr. Vela. NIMA Egan March 15, 2024 documented in this encounter [facility] 02-17-2024 Note HNO ID: [id number] Author: JERMAINE VELA, PhD Service: ? Author Type: Psychologist Type: Progress Notes Filed: 02/17/2024 09:52 Note Text: [facility] Behavioral Health Department Progress Note Antonio Castellano 02/17/2024 [id number] PROVIDER: Jermaine Vela, PhD CPT Code: Time: 50 minutes Setting: Due to the federal emergency declaration and the need for ongoing mental health services, the following visit was completed virtually and informed consent obtained orally to reduce the risk of COVID-19 exposure. Oral consent to services related to virtual visits was obtained after information was sent via We[employer] or read to patient if Standardized Safetyhart not available." Parties Present: Patient Treatment Modality/Interventions: Cognitive Behavioral Reassurance/Supportive Insight oriented Problem solving Processing of emotions Communication skills training MENTAL STATUS: Mood: variable Affect: mood-congruent Thoughts/Associations:goal directed Suicidal/Homicidal Ideation: None expressed or evidenced Other Prominent Symptoms: Therapy Focus/Content of Session: Self-care, Mood/affect regulation, Marital/couple, Parenting, and Self-esteem Family issues little modeling daughter: pt gets frustrated and then rlnshp suffers ie ask her to do something but she doesnt do it right away f... abusive ETOH modeled scary and pt left angry I'm the adult and you're the kid if daughter doesnt do things as I had wished ... I jump on her praise success vs lost in FRUSTRATION gOAL FRUSTRATION to be a Signal vs Chronic f would feel like he had to say what was on his mind and DEFEND HIMSELF pt has some of that because of being in the company of dad and pt did speak up w him NOW interrupt the automatic thought and make a choice to notice others and their differences as INTERESTING MEDICATIONS: Per medical record: Current Outpatient Medications Medication Sig FLUoxetine (PROZAC) 40 mg capsule Take 1 capsule by mouth once daily. multivitamin tablet Take 1 tablet by mouth once daily. No current facility-administered medications for this visit. Psychiatric Medication Issues: No change from previous appointment DIAGNOSIS: Wells Tannery I: Anxiety and Depression anger mgmt Marital Conflict Wells Tannery II: deferred Wells Tannery III: see med record Wells Tannery IV: wants to manage feelings better Wells Tannery V: 51-60 TREATMENT PROGRESS/ASSESSMENT: Progressing satisfactorily. TREATMENT PLAN/GOALS: Continue in therapy focusing on self-care, improving communication, affect management, and self-esteem. Next appointment: as scheduled Jermaine Vela, [facility] 02-03-2024 Telephone encount er Note Phoned patient went over results from Avinash Kohler [employer]ER with understanding. [facility] 02-03-2024 Miscellaneous Notes Formattin g of this note might be different from the original. Phoned patient went over results from Avinash Kohler [employer] with understanding. ----- Message from Avinash Kohler APRN.CNP sent at 02/03/2024 10:07 AM EST ----- Normal chest xray. Avinash Kohler APRN.CNP documented in this encounter [facility] 02-03-2024 Telephone encount er Note ----- Message from Avinash Kohler APRN.CNP sent at 02/03/2024 10:07 AM EST ----- Normal chest xray. Avinash Kohler APRN.CNP [facility] 02-03-2024 History of Presen t illness Narrative Radiology Service Progress Note PATIENT NAME: Antonio Castellano JR DATE OF SERVICE: February 03, 2024 TIME: 9:56 AM PATIENT IDENTITY VERIFICATION COMPLETED USING TWO (2) IDENTIFIERS: Name and Date of confirmed by patient verbally. FALL SCREENING: Has the patient had 2 falls in the last year or 1 fall with injury or currently using an Ambulatory Assistive Device (Walker, Cane, Wheelchair, Crutches, etc.)? No PATIENT GENDER DATA: Male PATIENT RELEVANT IMPLANT DATA REVIEWED: Yes PATIENT PRESENTS WITH AN IMPLANTABLE OR ATTACHED SUBSEA ENGINEER: No RADIOLOGY DEPARTMENT: General X-ray: Exam(s) Completed: Chest X-Ray PERIPHERAL IV DATA: Not applicable SIGNED BY: RT Tiffany(R) February 03, 2024 9:56 AM documented in this encounter [facility] 02-03-2024 Note HNO ID: [id number] Author: TED BARAJAS RT(R) Service: ? Author Type: Veterinarian Poultry Type: Progress Notes Filed: 02/03/2024 10:02 Note Text: Radiology Service Progress Note PATIENT NAME: Antonio Castellano JR DATE OF SERVICE: February 03, 2024 TIME: 9:56 AM PATIENT IDENTITY VERIFICATION COMPLETED USING TWO (2) IDENTIFIERS: Name and Date of confirmed by patient verbally. FALL SCREENING: Has the patient had 2 falls in the last year or 1 fall with injury or currently using an Ambulatory Assistive Device (Walker, Cane, Wheelchair, Crutches, etc.)? No PATIENT GENDER DATA: Male PATIENT RELEVANT IMPLANT DATA REVIEWED: Yes PATIENT PRESENTS WITH AN IMPLANTABLE OR ATTACHED SUBSEA ENGINEER: No RADIOLOGY DEPARTMENT: General X-ray: Exam(s) Completed: Chest X-Ray PERIPHERAL IV DATA: Not applicable SIGNED BY: RT Tiffany(R) February 03, 2024 9:56 AM [facility] 02-03-2024 Note HNO ID: [id number] Author: AVINASH KOHLER APRN.E[employer]GL[employer] POLISHER Service: ? Author Type: Nurse Practitioner Type: Progress Notes Filed: 02/03/2024 10:53 Note Text: 02/03/2024 Patient presents with: Cough: And chest congestion x3 days, daughter just got over pneumonia SUBJECTIVE: This is a 23 year old that is here today for Above Complaints. Three days ago started with cough and chest congestion. Also admits to sinus pressure, nasal congestion, rhinorrhea, headaches, and muscle .Daughter just got over pneumonia. Did not self test for COVID-19. No using any OTC medications at this time. Denies fevers, chills, sore throat SOB, dyspnea, wheezing, nausea, vomiting or diarrhea PAST MEDICAL HISTORY Diagnosis Date RICCO (generalized anxiety disorder) GERD (gastroesophageal reflux disease) Migraines Muscular dystrophy (HCC) congenital Sciatica ALLERGIES Mold MEDICATIONS Current Outpatient Medications Medication Sig FLUoxetine (PROZAC) 40 mg capsule Take 1 capsule by mouth once daily. multivitamin tablet Take 1 tablet by mouth once daily. No current facility-administered medications for this visit. Medications and allergies reviewed by this provider. SOCIAL HISTORY Social History Tobacco Use Smoking status: Never Smokeless tobacco: Never Vaping Use Vaping status: Never Used Substance Use Topics Alcohol use: Not Currently Drug use: Never REVIEW OF SYSTEMS All other reviewed and negative other than HPI. OBJECTIVE: BP 126/88 Pulse 64 Temp 36.5 ?C (97.7 ?F) Resp 18 Wt 79.8 kg (175 lb 14.8 oz) SpO2 98% BMI 27.26 kg/m? . Vital signs reviewed by this provider. APPEARANCE Well appearing, alert, in no acute distress, well-hydrated, well nourished. EYES PERRLA, conjunctiva and sclera normal. EARS External ears normal, canals clear NOSE/SINUS Nares normal. Septum midline. Mucosa normal. No drainage or sinus tenderness. NECK Supple, no adenopathy; thyroid symmetric, normal size, no bruits HEART RRR with normal S1 and S2, no murmurs, no gallops, no JVD appreciated LUNG Diminshed RLL otherwise no wheezes, rhonchi or rales. Able to speak in fuls SKIN Skin color, texture, turgor normal, no suspicious rashes or lesions to exposed skin Influenza Vaccine(1) Never done Covid-19 Vaccine( season) Never done HPV Vaccine(2 - Male 3-dose series) due on 10/20/2023 Hepatitis B Vaccine(1 of 3 - 19+ 3-dose series) due on 09/21/2024 Depression Screening due on 09/21/2024 Anxiety Screening due on 09/21/2024 DTaP,Tdap,Td Vaccine(2 - Td or Tdap) due on 09/21/2033 Hepatitis C Screening Discontinued HIV Screening Discontinued ASSESSMENT/PLAN: 1. Acute cough - ICD9: 786.2, ICD10: R05.1 (primary diagnosis) - declines COVID-19 testing - no red flag symptoms or exam findings - red flag symptoms discussed, verbalizes understanding - may use OTC cough and cold preparations as directed on packaging go symptoms - XR CHEST 2V FRONTAL/LAT - follow-up if symptoms fail to improve to ER with red flag symptoms 2. Abnormal lung sounds - ICD9: 786.7, ICD10: R09.89 - XR CHEST 2V FRONTAL/LAT Avinash Lyonslogmelinda, ACCOUNTS MANAGER.[employer] POLISHER Prescription instructions reviewed with patient as applicable. Patient advised if symptoms do not improve or if symptoms worsen sooner, to contact their primary care physician. Potential red flag symptoms discussed with the patient. Reviewed appropriate action plan to take if red flag symptoms occur. Patient agreeable to treatment plan. Medical Decision Making: Problems: Low: Acute, uncomplicated illness or injury Data: Unique test(s) ordered: 1 Risk: Moderate: Moderate risk from testing/treatment Medical Decision Making Level: 3 - Low [facility] 02-03-2024 History of Presen t illness Narrative 02/03/2024 Patient presents with: Cough: And chest congestion x3 days, daughter just got over pneumonia SUBJECTIVE: This is a 23 year old that is here today for Above Complaints. Three days ago started with cough and chest congestion. Also admits to sinus pressure, nasal congestion, rhinorrhea, headaches, and muscle .Daughter just got over pneumonia. Did not self test for COVID-19. No using any OTC medications at this time. Denies fevers, chills, sore throat SOB, dyspnea, wheezing, nausea, vomiting or diarrhea PAST MEDICAL HISTORY Diagnosis Date RICCO (generalized anxiety disorder) GERD (gastroesophageal reflux disease) Migraines Muscular dystrophy (HCC) congenital Sciatica ALLERGIES Mold MEDICATIONS Current Outpatient Medications Medication Sig FLUoxetine (PROZAC) 40 mg capsule Take 1 capsule by mouth once daily. multivitamin tablet Take 1 tablet by mouth once daily. No current facility-administered medications for this visit. Medications and allergies reviewed by this provider. SOCIAL HISTORY Social History Tobacco Use Smoking status: Never Smokeless tobacco: Never Vaping Use Vaping status: Never Used Substance Use Topics Alcohol use: Not Currently Drug use: Never REVIEW OF SYSTEMS All other reviewed and negative other than HPI. OBJECTIVE: BP 126/88 Pulse 64 Temp 36.5 C (97.7 F) Resp 18 Wt 79.8 kg (175 lb 14.8 oz) SpO2 98% BMI 27.26 kg/m . Vital signs reviewed by this provider. APPEARANCE Well appearing, alert, in no acute distress, well-hydrated, well nourished. EYES PERRLA, conjunctiva and sclera normal. EARS External ears normal, canals clear NOSE/SINUS Nares normal. Septum midline. Mucosa normal. No drainage or sinus tenderness. NECK Supple, no adenopathy; thyroid symmetric, normal size, no bruits HEART RRR with normal S1 and S2, no murmurs, no gallops, no JVD appreciated LUNG Diminshed RLL otherwise no wheezes, rhonchi or rales. Able to speak in fuls SKIN Skin color, texture, turgor normal, no suspicious rashes or lesions to exposed skin Influenza Vaccine(1) Never done Covid-19 Vaccine( - 2023- season) Never done HPV Vaccine(2 - Male 3-dose series) due on 10/20/2023 Hepatitis B Vaccine(1 of 3 - 19+ 3-dose series) due on 09/21/2024 Depression Screening due on 09/21/2024 Anxiety Screening due on 09/21/2024 DTaP,Tdap,Td Vaccine(2 - Td or Tdap) due on 09/21/2033 Hepatitis C Screening Discontinued HIV Screening Discontinued ASSESSMENT/PLAN: 1. Acute cough - ICD9: 786.2, ICD10: R05.1 (primary diagnosis) - declines COVID-19 testing - no red flag symptoms or exam findings - red flag symptoms discussed, verbalizes understanding - may use OTC cough and cold preparations as directed on packaging go symptoms - XR CHEST 2V FRONTAL/LAT - follow-up if symptoms fail to improve to ER with red flag symptoms 2. Abnormal lung sounds - ICD9: 786.7, ICD10: R09.89 - XR CHEST 2V FRONTAL/LAT Avinash Lyonslogar, ACCOUNTS MANAGER.[employer] POLISHER Prescription instructions reviewed with patient as applicable. Patient advised if symptoms do not improve or if symptoms worsen sooner, to contact their primary care physician. Potential red flag symptoms discussed with the patient. Reviewed appropriate action plan to take if red flag symptoms occur. Patient agreeable to treatment plan. Medical Decision Making: Problems: Low: Acute, uncomplicated illness or injury Data: Unique test(s) ordered: 1 Risk: Moderate: Moderate risk from testing/treatment Medical Decision Making Level: 3 - Low documented in this encounter [facility] 12-25-2023 Note HNO ID: [id number] Author: JERMAINE VELA, PhD Service: ? Author Type: Psychologist Type: Progress Notes Filed: 12/25/2023 15:02 Note Text: [facility] Behavioral Health Department Progress Note Gonzalez Lemire 12/25/2023 [id number] PROVIDER: Jermaine Vela, PhD CPT Code: Time: 50 minutes Setting: Due to the federal emergency declaration and the need for ongoing mental health services, the following visit was completed virtually and informed consent obtained orally to reduce the risk of COVID-19 exposure. Oral consent to services related to virtual visits was obtained after information was sent via We[employer] or read to patient if Standardized Safetyhart not available." Parties Present: Patient Treatment Modality/Interventions: Cognitive Behavioral Reassurance/Supportive Insight oriented Problem solving Processing of emotions Psychoeducation MENTAL STATUS: Mood: variable, irritable Affect: mood-congruent Thoughts/Associations:goal directed Suicidal/Homicidal Ideation: None expressed or evidenced Other Prominent Symptoms: Therapy Focus/Content of Session: Self-care, Stress management, Mood/affect regulation, Marital/couple, and Self-esteem Irritability... sometimes out of the blue conversation w and interrupted and hard time handling it grow w father and no way to express frustration or anger and NOW not having the modeling wheras didnt have a voice as child NOW angry just want to stay angry... a coping response... interrupt automatic thought and make a choice DEPRESSION: --Emotions hard to get over ... Depression --- interest down... pleasure now on Prozac... just moved from 18 to 38 --depression runs in the family... also situational PLAN: WHEN ON meds use it to notice sooner when becoming depressed and DO something new to get back to Healthy stance struggle w misarrange m and half ago challenging... use automatic thinking most of the time but continue to improve it by STOPPING AND MAKING CHOICES TO CORRECT THE COURSE PLAN: USE a technique like thumb to finger or counting 5- to - 0 etc to stop the auto thought and make decisions share what you are doing w your PLAN: with : use a word to stop when dialogue becomes monologue or debate and make sure to RETURN and finish MEDICATIONS: Per medical record: Current Outpatient Medications Medication Sig FLUoxetine (PROZAC) 40 mg capsule Take 1 capsule by mouth once daily. multivitamin tablet Take 1 tablet by mouth once daily. No current facility-administered medications for this visit. Psychiatric Medication Issues: as noted DIAGNOSIS: Wells Tannery I: Anxiety and Depression anger mgmt Marital Conflict Wells Tannery II: deferred Wells Tannery III: see med record Wells Tannery IV: wants to manage feelings better Wells Tannery V: 51-60 TREATMENT PROGRESS/ASSESSMENT: Fluctuating progress. TREATMENT PLAN/GOALS: Continue in therapy focusing on self-care, interpersonal relationships, improving communication, and affect management. Next appointment: as scheduled Jermaine Vela, PhD [facility] 12-23-2023 Note HNO ID: [id number] Author: MAU BREAUX MD Service: ? Author Type: Physician Type: Progress Notes Filed: 12/23/2023 11:26 Note Text: Chief Complaint Patient presents with: Follow Up: 3 month HPI Antonio Castellano JR is a 23 year old male who presents here today for 3 month follow up of anxiety. . Previous HPI: Patient states that he does not have a history of depression or anxiety, but would like a referral for counseling. States that he would like "emotional management" and anger management. States that small things can make him angry and can shut down or yell when he is angry. has expressed concerns with his anger. Under more stress recently with recent move and his just found out his is 5 weeks . Depression screening negative. RICCO 7: 13 today. Symptoms present for years. Interested in rx. Started on Prozac 20 mg daily and referred to counseling. Since last OV, he has been taking the prozac as prescribed without side effects but did run out for about 1-2 weeks more than 1 month ago. States that symptoms have been worse in the last 1-2 months. States that his recently had a miscarriage in the last 1-2 months which has worsened his anxiety and caused some new depression symptoms. Going to counseling with Jermaine Vela monthly and has f/u later this week. Denies SI/HI, panic symptoms. Has weapons at home, but are locked up. Would like to try higher dosage of rx. RICCO-7 09/22/2023 12/01/2023 12/22/2023 12/23/2023 RICCO-7 All Questions Feeling nervous, anxious, or on edge More than half the days Nearly Everyday Nearly Everyday Nearly Everyday Not being able to stop or control worrying Several days Nearly Everyday Nearly Everyday Nearly Everyday Worrying too much about different things More than half the days Nearly Everyday Nearly Everyday Nearly Everyday Trouble relaxing More than half the days Nearly Everyday Nearly Everyday Nearly Everyday Being so restless that it is hard to sit still More than half the days Several days Several days Nearly Everyday Becoming easily annoyed or irritable More than half the days Nearly Everyday Nearly Everyday Nearly Everyday Feeling afraid, as if something awful might happen More than half the days Nearly Everyday Nearly Everyday Nearly Everyday RICCO-7 Score 13 19 19 21 Details PHQ-9 12/01/2023 12/22/2023 12/23/2023 PHQ-9 Scores Little interest or pleasure in doing things: More than half the days More than half the days More than half the days Feeling down, depressed, or hopeless: More than half the days Nearly every day Nearly every day Trouble falling or staying asleep, or sleeping too much Several days More than half the days More than half the days Feeling tired or having little energy Nearly every day Nearly every day Nearly every day Poor appetite or overeating Nearly every day Nearly every day Nearly every day Feeling bad about yourself - or that you are a failure or have let yourself or your family down Nearly every day Nearly every day Nearly every day Trouble concentrating on things, such as reading the newspaper or watching television Nearly every day Nearly every day More than half the days Moving or speaking so slowly that other people could have noticed. Or the opposite - being so fidgety or restless that you have been moving around a lot more than usual Not at all More than half the days Several days Thoughts that you would be better off , or of hurting yourself in some way Several days Several days Not at all PHQ-9 Score 18 22 19 Details Patient also notes some intermittent neck and chest pressure in the last couple of weeks which is worsened with exertion. Denies radiation to shoulder/arm, nausea, SOB, diaphoresis, palpitations, lightheadedness. Past medical history, appointments, medications, allergies reviewed. Previous Medical History PAST MEDICAL HISTORY Diagnosis Date GERD (gastroesophageal reflux disease) Migraines Muscular dystrophy (HCC) congenital Sciatica Previous Surgical History PAST SURGICAL HISTORY Procedure Laterality Date PAST SURGICAL HISTORY OF 2008 nose fracture repair PAST SURGICAL HISTORY OF mole removal PAST SURGICAL HISTORY OF EGD in childhood TONSILLECTOMY AND ADENOIDECTOMY childhood Family History FAMILY HISTORY Problem Relation Age of Onset Depression Mother No Known Problems Father No Known Problems Sister Diabetes Maternal Grandfather Stroke Paternal Grandfather Ischemic Heart Disease Paternal Grandfather Ischemic Heart Disease Paternal Aunt Brain Cancer Paternal Aunt Stroke Paternal Aunt Patient Allergies ALLERGIES Allergen Reactions Mold Current Medications Current Outpatient Medications on File Prior to Visit Medication Sig FLUoxetine (PROZAC) 20 mg capsule Take 1 capsule by mouth once daily. multivitamin tablet Take 1 tablet by mouth once daily. No current facility-administer (more content not included)... [facility] 12-23-2023 History of Presen t illness Narrative Chief Complaint Patient presents with: Follow Up: 3 month HPI Antonio Castellano JR is a 23 year old male who presents here today for 3 month follow up of anxiety. . Previous HPI: Patient states that he does not have a history of depression or anxiety, but would like a referral for counseling. States that he would like "emotional management" and anger management. States that small things can make him angry and can shut down or yell when he is angry. has expressed concerns with his anger. Under more stress recently with recent move and his just found out his is 5 weeks . Depression screening negative. RICCO 7: 13 today. Symptoms present for years. Interested in rx. Started on Prozac 20 mg daily and referred to counseling. Since last OV, he has been taking the prozac as prescribed without side effects but did run out for about 1-2 weeks more than 1 month ago. States that symptoms have been worse in the last 1-2 months. States that his recently had a miscarriage in the last 1-2 months which has worsened his anxiety and caused some new depression symptoms. Going to counseling with Jermaine Vela monthly and has f/u later this week. Denies SI/HI, panic symptoms. Has weapons at home, but are locked up. Would like to try higher dosage of rx. RICCO-7 09/22/2023 12/01/2023 12/22/2023 12/23/2023 RICCO-7 All Questions Feeling nervous, anxious, or on edge More than half the days Nearly Everyday Nearly Everyday Nearly Everyday Not being able to stop or control worrying Several days Nearly Everyday Nearly Everyday Nearly Everyday Worrying too much about different things More than half the days Nearly Everyday Nearly Everyday Nearly Everyday Trouble relaxing More than half the days Nearly Everyday Nearly Everyday Nearly Everyday Being so restless that it is hard to sit still More than half the days Several days Several days Nearly Everyday Becoming easily annoyed or irritable More than half the days Nearly Everyday Nearly Everyday Nearly Everyday Feeling afraid, as if something awful might happen More than half the days Nearly Everyday Nearly Everyday Nearly Everyday RICCO-7 Score 13 19 19 21 Details PHQ-9 12/01/2023 12/22/2023 12/23/2023 PHQ-9 Scores Little interest or pleasure in doing things: More than half the days More than half the days More than half the days Feeling down, depressed, or hopeless: More than half the days Nearly every day Nearly every day Trouble falling or staying asleep, or sleeping too much Several days More than half the days More than half the days Feeling tired or having little energy Nearly every day Nearly every day Nearly every day Poor appetite or overeating Nearly every day Nearly every day Nearly every day Feeling bad about yourself - or that you are a failure or have let yourself or your family down Nearly every day Nearly every day Nearly every day Trouble concentrating on things, such as reading the newspaper or watching television Nearly every day Nearly every day More than half the days Moving or speaking so slowly that other people could have noticed. Or the opposite - being so fidgety or restless that you have been moving around a lot more than usual Not at all More than half the days Several days Thoughts that you would be better off , or of hurting yourself in some way Several days Several days Not at all PHQ-9 Score 18 22 19 Details Patient also notes some intermittent neck and chest pressure in the last couple of weeks which is worsened with exertion. Denies radiation to shoulder/arm, nausea, SOB, diaphoresis, palpitations, lightheadedness. Past medical history, appointments, medications, allergies reviewed. Previous Medical History PAST MEDICAL HISTORY Diagnosis Date GERD (gastroesophageal reflux disease) Migraines Muscular dystrophy (HCC) congenital Sciatica Previous Surgical History PAST SURGICAL HISTORY Procedure Laterality Date PAST SURGICAL HISTORY OF 2008 nose fracture repair PAST SURGICAL HISTORY OF mole removal PAST SURGICAL HISTORY OF EGD in childhood TONSILLECTOMY & ADENOIDECTOMY <AGE 10 childhood Family History FAMILY HISTORY Problem Relation Age of Onset Depression Mother No Known Problems Father No Known Problems Sister Diabetes Maternal Grandfather Stroke Paternal Grandfather Ischemic Heart Disease Paternal Grandfather Ischemic Heart Disease Paternal Aunt Brain Cancer Paternal Aunt Stroke Paternal Aunt Patient Allergies ALLERGIES Allergen Reactions Mold Current Medications Current Outpatient Medications on File Prior to Visit Medication Sig FLUoxetine (PROZAC) 20 mg capsule Take 1 capsule by mouth once daily. multivitamin tablet Take 1 tablet by mouth once daily. No current facility-administered medications on file prior to visit. Social History Social History Tobacco Use Smoking status: Never Smokeless tobacco: Never Vaping Use Vaping status: Never Used Substance Use Topics Alcohol use: Not Currently Drug use: Never Review of Symptoms REVIEW OF SYSTEMS See HPI EXAM: BP 110/72 Pulse 93 Resp 16 Wt 78.7 kg (173 lb 9.6 oz) SpO2 99% BMI 26.90 kg/m General Appearance: Well appearing, alert, in no acute distress, well-hydrated, well nourished.. Skin: Skin color, texture, turgor normal, no suspicious rashes or lesions. Lungs: Lungs clear to auscultation. No wheezing, rhonchi, rales.. Heart: RRR without murmur, gallop, or rubs. No ectopy. PSYCH: Posture and motor behavior: normal posture and motor behavior Dress, grooming, personal hygiene: normal dress and grooming Facial expression: good eye contact Speech: normal speech Mood: flat affect Coherency and relevance of thought: normal thought processes Memory: normal memory Health Maintenance List Depression Screening Never done Influenza Vaccine(1) Never done Covid-19 Vaccine( season) Never done HPV Vaccine(2 - Male 3-dose series) due on 10/20/2023 Hepatitis B Vaccine(1 of 3 - 19+ 3-dose series) due on 09/21/2024 Anxiety Screening due on 09/21/2024 DTaP,Tdap,Td Vaccine(2 - Td or Tdap) due on 09/21/2033 Hepatitis C Screening Discontinued HIV Screening Discontinued Data reviewed Latest Ref Rng 09/22/2023 TSH 0.270 - 4.200 mIU/L 1.580 Free T4 0.9 - 1.7 ng/dL 1.4 ASSESSMENT/PLAN: 1. Anxiety with depression - ICD9: 300.4, ICD10: F41.8 (primary diagnosis) Uncontrolled anxiety with new depression symptoms. Will increase SSRI to 40 mg daily. Offered labs to check CMP and vitamin levels which he is refusing. Continue counseling and will recheck in 3 months. Contracted for safety. Given information on counseling center and national suicide hotline. 2. Chest pain, unspecified type - ICD9: 786.50, ICD10: R07.9 Offered CXR and EKG today. Patient refusing this or cardiac workup. May be 2/2 anxiety vs GERD. Increase Prozac and may take OTC pepcid or prilosec PRN. Red flags for re-assessment reviewed with patient in detail. Mau Breaux MD documented in this encounter [facility] 11-22-2023 Telephone encount er Note Prescription Refill Information The patient has been identified by name and date of : Yes Caregiver verified no other encounters exist for this prescription request: Yes Caregiver confirmed with patient/requestor that no other refills are due, in the near future, with this provider at this time: Yes The last office visit in the department: 09/22/23 Does the patient have a future office visit with this provider/department: Yes, 12/23/23 Requested Prescriptions Pending Prescriptions Disp Refills FLUoxetine (PROZAC) 20 mg capsule 90 capsule 0 Sig: Take 1 capsule by mouth once daily. Garo Hendrix LPN November 22, 2023 11:52 AM [facility] 11-22-2023 Miscellaneous Notes Formattin g of this note is different from the original. Prescription Refill Information The patient has been identified by name and date of : Yes Caregiver verified no other encounters exist for this prescription request: Yes Caregiver confirmed with patient/requestor that no other refills are due, in the near future, with this provider at this time: Yes The last office visit in the department: 09/22/23 Does the patient have a future office visit with this provider/department: Yes, 12/23/23 Requested Prescriptions Pending Prescriptions Disp Refills FLUoxetine (PROZAC) 20 mg capsule 90 capsule 0 Sig: Take 1 capsule by mouth once daily. Garo Hendrix LPN November 22, 2023 11:52 AM documented in this encounter [facility] 09-29-2023 Telephone encount er Note Behavioral Health Social Work Progress Note Patient identified for [facility] from: PCP Reason for referral: [facility] Behavioral Health Resources: Psychology - talk therapy [facility] encounter type: Telephone Encounter, Standardized Safetyhart Message Attempts to Outreach: 1 attempt Referral made: Psychology - External Psychology-External referral type: Therapy Reason for external referral: Patient needs services closer to home, Patient seeking manager long term care support Final Disposition: Care established with Patient Discharged?: Yes Patient reported that caregiver was able to meet their needs today?: Yes therapist spoke with patient, he was agreeable to having resources sent to my chart. Patient expressed no further needs at this time. NIMA Egan September 29, 2023 [facility] Work Phone: 09-29-2023 Miscellaneous Notes Formattin g of this note might be different from the original. Behavioral Health Social Work Progress Note Patient identified for [facility] from: PCP Reason for referral: Resources Behavioral Health Resources: Psychology - talk therapy [facility] encounter type: Telephone Encounter, MyChart Message Attempts to Outreach: 1 attempt Referral made: Psychology - External Psychology-External referral type: Therapy Reason for external referral: Patient needs services closer to home, Patient seeking detention support Final Disposition: Care established with Patient Discharged?: Yes Patient reported that caregiver was able to meet their needs today?: Yes therapist spoke with patient, he was agreeable to having resources sent to my chart. Patient expressed no further needs at this time. SHAE Egan-S September 29, 2023 documented in this encounter [facility] 09-27-2023 Telephone encount er Note Usually they dont need a referral for counseling, but I have placed the order for him. [facility] 09-27-2023 Miscellaneous Notes Formattin g of this note might be different from the original. Usually they dont need a referral for counseling, but I have placed the order for him. documented in this encounter [facility] 09-23-2023 Telephone encount er Note Pt notified of results via [email or web address]. Kim Pineda Ma [facility] 09-23-2023 Miscellaneous Notes Formattin g of this note might be different from the original. Pt notified of results via [email or web address]. Kim Pineda Ma ----- Message from Mau Breaux MD sent at 09/23/2023 8:09 AM EDT ----- Normal thyroid levels. No change in regimen. documented in this encounter [facility] 09-23-2023 Telephone encount er Note ----- Message from Mau Breaux MD sent at 09/23/2023 8:09 AM EDT ----- Normal thyroid levels. No change in regimen. [facility] 09-22-2023 Instructions Mau Breaux MD - 09/22/2023 9:15 AM EDT [facility] [address] [place] [address] [facility] [address] [place] [address] [employer] [address] [address] [facility] [address] [facility] [facility] [place] [address] [facility] [address] [place] [address] [employer] [address] [address] [employer] [address] [place] [address] [facility] [address] [place] [address] documented in this encounter [facility] 09-22-2023 History of Presen t illness Narrative Chief Complaint Patient presents with: Establish Care HPI Antonio Castellano is a 23 year old male who presents here today for Establish care visit. Patient originally from [facility] and moved to the area about 3 months ago. Has not seen PCP in years in [place]. Had a physical in [place] about 3 months ago for work. Patient states that he does not have a history of depression or anxiety, but would like a referral for counseling. States that he would like "emotional management" and anger management. States that small things can make him angry and can shut down or yell when he is angry. has expressed concerns with his anger. Under more stress recently with recent move and his just found out his is 5 weeks . Depression screening negative. RICCO 7: 13 today. Symptoms present for years. Interested in rx. Diagnosed with muscular dystrophy at , and was treated PT and leg braces as a child, but does not have any lingering symptoms at this time. Does not see a specialist for this now. Past medical history, appointments, medications, allergies reviewed. Previous Medical History PAST MEDICAL HISTORY No date: GERD (gastroesophageal reflux disease) No date: Migraines No date: Muscular dystrophy (HCC) Comment: congenital No date: Sciatica Previous Surgical History PAST SURGICAL HISTORY 2009: PAST SURGICAL HISTORY OF Comment: nose fracture repair No date: PAST SURGICAL HISTORY OF Comment: mole removal No date: PAST SURGICAL HISTORY OF Comment: EGD in childhood No date: TONSILLECTOMY & ADENOIDECTOMY <AGE 10 Comment: childhood Family History FAMILY HISTORY Problem Relation Age of Onset Depression Mother No Known Problems Father No Known Problems Sister Diabetes Maternal Grandfather Stroke Paternal Grandfather Ischemic Heart Disease Paternal Grandfather Ischemic Heart Disease Paternal Aunt Brain Cancer Paternal Aunt Stroke Paternal Aunt Patient Allergies ALLERGIES Allergen Reactions Mold Current Medications No current outpatient medications on file prior to visit. No current facility-administered medications on file prior to visit. Social History Social History Tobacco Use Smoking status: Never Smokeless tobacco: Never Vaping Use Vaping Use: Never used Substance Use Topics Alcohol use: Not Currently Drug use: Never Review of Symptoms REVIEW OF SYSTEMS GENERAL: No weight loss, malaise or fevers RESPIRATORY: Cough; intermittent mostly dry cough for the last 2 months which usually occurs at night. Denies SOB, wheezing. CARDIOVASCULAR: Negative for chest pain, leg swelling, hypertension, CHF or palpitations GI: No nausea, vomiting, or diarrhea SKIN: Admits to poison mariusz rash on his left pinky, right forearm, and left groin which developed in the last 1 week. Treating at home with OTC poison mariusz soap and thinks this is helping. EXAM: BP 114/62 Pulse 97 Resp 16 Ht 171.1 cm (5' 7.36") Wt 75.5 kg (166 lb 7.2 oz) SpO2 98% BMI 25.79 kg/m General Appearance: Well appearing, alert, in no acute distress, well-hydrated, well nourished.. Skin: scattered poison mariusz dermatitis on left pinky with vesicles, and right forearm. Confluent rash in left groin without cellulitis, vesicles, pustules or abscess. Neck: Supple, no adenopathy; thyroid symmetric, normal size, no bruits. Lungs: Lungs clear to auscultation. No wheezing, rhonchi, rales.. Heart: RRR without murmur, gallop, or rubs. No ectopy. Abdomen: Normal abdominal exam, Abdomen soft, non-tender. Bowel sounds normal. No masses, organomegaly. Extremities: No deformities, edema, skin discoloration, clubbing or cyanosis. Good capillary refill. . Health Maintenance List HPV Vaccine(1 - Male 3-dose series) Never done Depression Screening Never done Anxiety Screening Never done Hepatitis C Screening Never done HIV Screening Never done DTaP,Tdap,Td Vaccine(1 - Tdap) Never done Hepatitis B Vaccine(1 of 3 - 19+ 3-dose series) Never done Covid-19 Vaccine(1 - season) Never done Influenza Vaccine(1) due on 10/19/2023 ASSESSMENT/PLAN: 1. RICCO (generalized anxiety disorder) - ICD9: 300.02, ICD10: F41.1 (primary diagnosis) New diagnosis. Check thyroid levels and will start on Prozac 20 mg daily. Call if not improving symptoms in 1 month. Information given for counseling as requested. Red flags for re-assessment reviewed with patient in detail. - THYROID STIMULATING HORMONE - T4 FREE/FREE THYROXINE 2. Poison mariusz dermatitis - ICD9: 692.6, ICD10: L23.7 - Oral Steriod tx -Prednisone taper - discussed skin care of rash - follow up if symptoms persist or worsen. - PREDNISONE 10 MG TABLET 3. Persistent dry cough - ICD9: 786.2, ICD10: R05.3 Discussed likely 2/2 GERD. Offered rx which he is refusing. Will try prilosec OTC and call if not improving. 4. Encounter for screening examination for other mental health and behavioral disorders - ICD9: V79.8, ICD10: Z13.39 - ANXIETY SCREENING 5. Encounter for immunization - ICD9: V03.89, ICD10: Z23 - TDAP VACCINE, AGE 7+ YR (ADACEL, BOOSTRIX) - HPV VACCINE, 9-VALENT (GARDASIL 9) Mau Breaux MD documented in this encounter [facility] 09-12-2023 Miscellaneous Notes Formattin g of this note might be different from the original. Patient scheduled for 09/22/2023 for 40 minute establish care visit. Mone Gillespie LPN documented in this encounter [facility] 09-12-2023 Telephone encount er Note Patient scheduled for 09/22/2023 for 40 minute establish care visit. Mone Gillespie LPN [facility] Evaluation note Diagnosis Encounter for general adult medical examination without abnormal findings documented in this encounter [facility] Work Phone: Evaluation note* Diagnosis RICCO (generalized anxiety disorder)- Primary Generalized anxiety disorder Poison mariusz dermatitis Contact dermatitis and other eczema due to plants (except food) Persistent dry cough Cough Encounter for screening examination for other mental health and behavioral disorders Encounter for immunization Need for other specified prophylactic vaccination against single bacterial disease [facility] Diagnosis RICCO (generalized anxiety disorder)- Primary Generalized anxiety disorder [facility] Diagnosis Anxiety with depression- Primary Chest pain, unspecified type [facility] Diagnosis Acute cough- Primary Abnormal lung sounds Abnormal chest sounds Acute cough Abnormal lung sounds Abnormal chest sounds [facility] Diagnosis Acute cough Abnormal lung sounds Abnormal chest sounds documented in this encounter [facility] Reason for Referral Specialty Diagnoses / Procedures Referred By Leonela ritter Referred To Contact Radiology Diagnoses Encounter for general adult medical examination without abnormal findings Procedures XR chest [address] [place] [address] [place] [address] Referral ID Status Reason Start Date Expiration Date Visits Requested Visits Authorized [id number] Authorized Perform Procedure 06/18/2023 06/17/2024 1 1 Specialty Diagnoses / Procedures Referred By Leonela ritter Referred To Contact Diagnoses RICCO (generalized anxiety disorder) Procedures CONSULT TO [facility]IMARY [facility]IORAL [facility] ADULT OFFICE/OUTPATIENT [facility] 60 MINUTES Mau Breaux MD [address] [place] [address] Referral ID Status Reason Start Date Expiration Date Visits Requested Visits Authorized [id number] Pending Review PCP Requested Referral 09/27/2023 12/26/2023 1 1 Summary Purpose Family History No Family History Records FoundNo Family History Records FoundNo Family History Records Found Advance Directives No Advanced Directives Records FoundNo Advanced Directives Records FoundNo Advanced Directives Records Found Additional Source Comments Reason for Visit (unrecogniz ed section and content) Specialty Diagnoses / Procedures Referred By Leonela ritter Referred To Contact Radiology Diagnoses Encounter for general adult medical examination without abnormal findings Procedures XR chest [address] [place] [address] [place] [address] Referral ID Status Reason Start Date Expiration Date Visits Requested Visits Authorized [id number] Authorized Perform Procedure 06/18/2023 06/17/2024 1 1 Reason Comments Establish Care Reason Comments Results Reason Comments bh consult Reason Onset Date Comments Refill Request 11/21/2023 Reason Comments Follow Up 3 month Reason Comments Cough And chest congestion x3 days, daughter just got over pneumonia Care Teams (unrecognized sec tion and content) Brigadier Relationship Specialty Start Date End Date Generic Provider, [place] [address] PCP - General Speech Pathology Supervisor 06/18/23 Brigadier Relationship Specialty Start Date End Date Mau Breaux MD [address] [place], [place] [id number] PCP - General Family Medicine 09/22/23 Brigadier Relationship Specialty Start Date End Date Mau Breaux MD [address] [place], [place] [id number] PCP - General Family Medicine 09/22/23 Brigadier Relationship Specialty Start Date End Date Mau Breaux MD [address] [place], [place] [address] PCP - General Family Medicine 09/22/23 Brigadier Relationship Specialty Start Date End Date Mau Breaux MD [address] [place] [address] PCP - General Family Medicine 09/22/23 Brigadier Relationship Specialty Start Date End Date Mau Breaux MD [address] [place], [place] [address] [phone] PCP - General Family Medicine 09/22/23 Brigadier Relationship Specialty Start Date End Date Mau Breaux MD [address] [place] [address] PCP - General Family Medicine 09/22/23 Brigadier Relationship Specialty Start Date End Date Michael Collins [address] [place] [address] MADDY Cuevas [phone] PCP - General 06/05/07 Brigadier Relationship Specialty Start Date End Date Mau Breaux MD [address] [place] [address] PCP - General Family Medicine 09/22/23 PodlogarAvinash APRN.[employer] [address] [place] [address] Hematologist Oncologist Family Medicine 01/24/24 Brigadier Relationship Specialty Start Date End Date Mau Breaux MD [address] [place] [address] PCP - General Family Medicine 09/22/23 Podlogar, ROGER Lowery.[employer] [address] [place] [address] Hematologist Oncologist Family Medicine 01/24/24 Brigadier Relationship Specialty Start Date End Date Mau Breaux MD [address] [facility], [place] [id number] PCP - General Family Medicine 09/22/23 Avinash Kohler APRN.CNP [address] [place] [address] Hematologist Oncologist Family Medicine 01/24/24 (unrecognized sect ion and content) No Status Records FoundNo Status Records FoundNo Status Records Found INFORMATION SOURCE (unrecogn ized section and content) DATE CREATED AUTHOR 06/23/2023 [facility] DATE CREATED AUTHOR AUTHOR'S ORGANIZ ATION 12/19/2024 [facility] DATE CREATED AUTHOR AUTHOR'S ORGANIZ ATION 12/30/2024 [facility] Source Comments (unrecognize d section and content) In the event this informatio n is protected by the Federal Confidentiality of Alcohol and Drug Abuse Patient Records regulations: The Federal rules restrict any use of the information to criminally investigate or prosecute any alcohol or drug abuse patient.[facility] the event this information is protected by the Federal Confidentiality of Alcohol and Drug Abuse Patient Records regulations: The Federal rules restrict any use of the information to criminally investigate or prosecute any alcohol or drug abuse patient.[facility] the event this information is protected by the Federal Confidentiality of Alcohol and Drug Abuse Patient Records regulations: The Federal rules restrict any use of the information to criminally investigate or prosecute any alcohol or drug abuse patient.[facility] the event this information is protected by the Federal Confidentiality of Alcohol and Drug Abuse Patient Records regulations: The Federal rules restrict any use of the information to criminally investigate or prosecute any alcohol or drug abuse patient.[facility] the event this information is protected by the Federal Confidentiality of Alcohol and Drug Abuse Patient Records regulations: The Federal rules restrict any use of the information to criminally investigate or prosecute any alcohol or drug abuse patient.[facility] the event this information is protected by the Federal Confidentiality of Alcohol and Drug Abuse Patient Records regulations: The Federal rules restrict any use of the information to criminally investigate or prosecute any alcohol or drug abuse patient.[facility] the event this information is protected by the Federal Confidentiality of Alcohol and Drug Abuse Patient Records regulations: The Federal rules restrict any use of the information to criminally investigate or prosecute any alcohol or drug abuse patient.[facility] the event this information is protected by the Federal Confidentiality of Alcohol and Drug Abuse Patient Records regulations: The Federal rules restrict any use of the information to criminally investigate or prosecute any alcohol or drug abuse patient.[facility] the event this information is protected by the Federal Confidentiality of Alcohol and Drug Abuse Patient Records regulations: The Federal rules restrict any use of the information to criminally investigate or prosecute any alcohol or drug abuse patient.[facility] the event this information is protected by the Federal Confidentiality of Alcohol and Drug Abuse Patient Records regulations: The Federal rules restrict any use of the information to criminally investigate or prosecute any alcohol or drug abuse patient.[facility] the event this information is protected by the Federal Confidentiality of Alcohol and Drug Abuse Patient Records regulations: The Federal rules restrict any use of the information to criminally investigate or prosecute any alcohol or drug abuse patient.[facility] the event this information is protected by the Federal Confidentiality of Alcohol and Drug Abuse Patient Records regulations: The Federal rules restrict any use of the information to criminally investigate or prosecute any alcohol or drug abuse patient.[facility] FOR RECORDS PERTAINING TO PATIENTS WHO ARE OR HAVE BEEN ENROLLED IN A CHEMICAL DEPENDENCY/SUBSTANCEABUSE PROGRAM, SOME INFORMATION MAY BE OMITTED. This clinical summary was aggregated from multiple sources. Caution should be exercised in using it in the provision of clinical care. This summary normalizes information from multiple sources, and as a consequence, information in this document may materially change the coding, format and clinical context of patient data. In addition, data may be omitted in some cases. CLINICAL DECISIONS SHOULD BE BASED ON THE PRIMARY CLINICAL RECORDS. [facility] [employer] [facility] provides no warranty or guarantee of the accuracy or completeness of information in this document.
[2025-01-01] MEDS: 0.9% Normal Saline (1000mL) 1,000 ML 1000 ML IV (21:06)
[2025-01-01 21:20] LABS: Hematocrit 32.6 % (40-54); Hemoglobin 10.4 g/dL (13.0-16.5); Immature Granulocytes Count 0.250 X10^3/uL (0.0-0.0); Mean Corp Hgb Conc 31.9 g/dL (32-36); Mean Corpuscular Volume 89.1 fL (80-94); Mean Platelet Vol. 9.9 fl (6.2-12.0); NRBC Flagged by Analyzer 0 % (0-5); POSITIVE DIFFERENTIAL YES; Platelet Count 420 K/mm3 (150-450); RBC Distribution Width CV 13.7 % (11.6-14.6); RBC Distribution Width SD 45.2 fl (35.1-43.9); Red Blood Count 3.66 M/mm3 (4.6-6.2); White Blood Count 16.8 K/mm3 (4.4-11.0)
[2025-01-01 21:32] LABS: Red Blood Cells-Urine 0 SEEN /hpf (0-5)
[2025-01-01 21:32] LABS: AST(SGOT) 41 U/L (<=37); Alanine Aminotransfer ALT/SGPT 55 U/L (<=46); Albumin, Serum 3.5 g/dL (3.5-5.0); Alkaline Phosphatase 116 U/L (40-129); Anion Gap 10 (5-15); BUN 19 mg/dL (4-19); BUN/Creat Ratio 17.4 RATIO (10-20); Calcium,Total 9.0 mg/dL (7.6-11.0); Carbon Dioxide 24.0 mmol/L (21.0-32.0); Chloride 104 mmol/L (98-108); Estimated Creatinine Clearance 108.44 ml/min (50-250); Globulin 3.6 g/dL (2.2-4.2); Glucose 126 mg/dL (70-99); Lipase 14 U/L (13-75); Potassium 3.9 mmol/L (3.3-5.1)
[2025-01-01 21:40] LABS: Differential Indicated SCAN CRITERIA MET
[2025-01-01 21:41] VITALS: BP 102/64; PULSE 79; RESP 16; TEMP 36.9; O2SAT 95
[2025-01-01 22:00] VITALS: BP 104/63; PULSE 82; RESP 16; TEMP 36.9; O2SAT 95
[2025-01-01 22:01] LABS: Troponin T High Sensitivity < 6 ng/L (<=22)
[2025-01-01 22:08] LABS: Color, Urine Yellow (Yellow); Glucose, Dipstick Normal (Normal); Ketone-Dipstick Negative (Negative); Leukocyte Esterase-Dipstick Negative /ul (Negative); Nitrite-Dipstick Negative (Negative); Occult Blood-Urine Negative /ul (Negative); Protein-Dipstick 30 mg/dl (Negative); Specific Gravity, Urine 1.020 (1.002-1.030); Urine Bilirubin Dipstick Negative (Negative)
[2025-01-01 22:11] LABS: Prothrombin Time (Protime)PT. 16.2 SECONDS (11.7-14.9)
[2025-01-01 22:12] LABS: Partial Thromboplast Time 39.7 Seconds (24.1-36.2)
[2025-01-01 22:41] LABS: Mucous, Urine 2+ /hpf (<or=2+); Squamous Epithelial Cells - UA 0-5 SEEN /hpf (0-5)
[2025-01-01 22:46] LABS: D-Dimer Quantitative (DVT/PE) 3.03 FEU/ug/m (0.27-0.49)
--- NOTE | 2025-01-01 22:48 | CT_ITS ---
PROCEDURE: CTA CHEST W/WO CONTRAST 01/01/2025 REASON FOR EXAM: ELEVATED D-DIMER TECHNIQUE: Procedure Code: [id number] Modality: CT Procedure: CTA CHEST W/WO CONTRAST Multiplanar Sagittal and Coronal images were obtained. CONTRAST: Isovue 370 VOLUME: 85 mL One or more dose reduction techniques were used (e.g., Automated exposure control, adjustment of the mA and/or kV according to patient size, use of iterative reconstruction technique). RADIATION DOSE SUMMARY: CTDlvol: 10.98 mGy DLP: 332.73 mGycm COMPARISON: CTA chest December 18, 2024. # of known CTs in the past 12 months: 1 # of known Cardiac Nuclear Medicine Studies in the past 12 months: 0 FINDINGS: Thoracic Aorta: No aneurysm. No dissection. Heart: Large cardiomegaly. Pericardial fluid effusion. Pulmonary Vessels: No evidence of pulmonary embolism. Hardware: Unremarkable. Lymph nodes: No lymphadenopathy. Lungs and Airways: Ground-glass densities in the lower lobes consistent with CHF. Pleura: Small left pleural effusion. Upper Abdomen: Unremarkable. Bones: No acute bony abnormalities. CT/CTA Chest W/WO Contrast IMPRESSION: No evidence of pulmonary embolism. Cardiomegaly, pericardial effusion with small left pleural effusion and ground- glass densities in the lower lobes consistent with CHF. Reading Location: [facility]
[2025-01-01 23:00] VITALS: BP 110/68; PULSE 89; RESP 16; TEMP 36.8; O2SAT 95
[2025-01-01 23:03] LABS: Differential Comment SCANNED
[2025-01-01 23:34] LABS: Troponin T High Sens 2 HR 8 ng/L (<=22)
[2025-01-02] VITALS (48 sets, daily range): BP systolic 101–128; BP diastolic 66–83; PULSE 38–112; RESP 14–38; TEMP 36.9–37.1; O2SAT 87–100
[2025-01-02 01:27] LABS: Troponin T High Sens 4 HR 7 ng/L (<=22)
[2025-01-02 08:10] LABS: Pro- Brain NATRIURETIC PEPTIDE 342 pg/mL (<=450)
--- NOTE | 2025-01-02 11:57 | PCA ---
THIS US TOOK ACCEPTING INFO FROM [facility] FLOOR RM [address] N2N: [phone]
== END 2025-01-02 14:49 | disposition short-term general hospital (02) ==
PROVIDERS: Emergency Medicine; Emergency Provider Emergency Medicine; PCP Family Medicine; Visit Provider Emergency Medicine
DX: J96.00 Acute respiratory failure, unspecified whether with hypoxia or hypercapnia (principal); D64.9 Anemia, unspecified; J81.1 Chronic pulmonary edema; I30.9 Acute pericarditis, unspecified; R50.9 Fever, unspecified; F41.9 Anxiety disorder, unspecified; K21.9 Gastro-esophageal reflux disease without esophagitis; Z79.899 Other long term (current) drug therapy
CPT/HCPCS: 71046; 71275; 80053; 81001; 82274; 83605; 83690; 83880; 84484; 85025; 85379; 85610; 85730; 87040; 87631; 93005; 96361; 96374; 96375; 96376; 99285; Q9967; A4216; J2405